=== PATIENT | female | born 1940 | race Caucasian/White ===

== ENCOUNTER → 2019-07-24 | Outpatient (CLI) | payer MEDICARE, SELFPAY | PROVIDERS: PCP Family Medicine; Visit Provider Family Medicine | DX: Z12.31 Encounter for screening mammogram for malignant neoplasm of breast (principal); N63.20 Unspecified lump in the left breast, unspecified quadrant; R92.8 Other abnormal and inconclusive findings on diagnostic imaging of breast | CPT/HCPCS: 76642; 77065; 77067; 77063 ==

== ENCOUNTER 2019-10-28 10:21 | Outpatient (CLI) | payer MEDICARE, SELFPAY ==
[2019-10-28 11:11] LABS: White Blood Count 6.9 K/mm3 (4.5-10.0)
[2019-10-28 11:18] LABS: Prothrombin Time 12.6 Seconds (11.1-14.7)
[2019-10-28 11:19] LABS: Partial Thromboplastin Time 28.7 SECONDS (22.3-36.8)
== END 2019-10-28 10:22 | disposition home or self-care (01) ==
LOC: ANHSURGERY 10:26
PROVIDERS: PCP Family Medicine; Visit Provider Surgery
DX: C50.919 Malignant neoplasm of unspecified site of unspecified female breast (principal)
CPT/HCPCS: 36415; 85048; 85610; 85730

== ENCOUNTER 2019-10-28 13:19 | Outpatient (CLI) | payer MEDICARE, SELFPAY ==
--- NOTE | 2019-10-28 | ECHO_ITS ---
Patient Info Name: Lori Velázquze Age: 79 years : 1940 Gender: Female Ht: 67 in Wt: 182 lbs BSA: 2.00 m2 HR: 80 bpm BP: 157 / 78 mmHg Heart Rhythm: Sinus Rhythm Technical Quality: Poor Exam Date: 10/28/2019 1:55 PM Exam Location: [facility] Pulmonary Patient Status: Outpatient Admit Date: 10/28/2019 Staff Ordering Physician: Lio Garcia MD Pastry Decorator: Kelvin Hernandez RDCS Attending Provider: Lio Garcia MD Referring Physician: Radha SALAZAR; Exam Type: CA echo doppler color flow Study Info Indications Z12.39 - Encounter for other screening for malignant neoplasm of breast Complete two-dimensional, color flow and Doppler transthoracic echocardiogram is performed. Reason for Poor Study: poor echocardiographic windows History/Risk Factors Breast cancer. Summary 1. Left ventricular chamber size and systolic function are normal with no regional wall motion abnormalities with an estimated ejection fraction of 60-65%. Measured ejection fraction is 61%. There is borderline concentric left ventricular hypertrophy. Grade 1 diastolic dysfunction is present. 2. No significant valve abnormality. 3. Normal sinus rhythm. 4. Somewhat technically difficult study. The patient had difficulty tolerating the pressure of the ultrasound probe and imaging was thus suboptimal. Left Ventricle Left ventricular chamber dimension is normal. Left ventricular systolic function is normal, estimated at 60-65%. There is mildly increased left ventricular wall thickness. Left ventricular septal wall motion is normal. The left ventricular diastolic function is grade I diastolic dysfunction. Left ventricular chamber size and systolic function are normal with no regional wall motion abnormalities with an estimated ejection fraction of 60-65%. Measured ejection fraction is 61%. There is borderline concentric left ventricular hypertrophy. Grade 1 diastolic dysfunction is present. Right Ventricle Right ventricular chamber dimension is normal. Right ventricular systolic function is normal. Left Atria Left atrial chamber dimension is normal. Right Atria Right atrial chamber dimension is normal. Aortic Valve The aortic valve is trileaflet. There is no aortic valve sclerosis. There is no aortic valve stenosis. There is no aortic valve regurgitation. Pulmonic Valve The pulmonic valve is normal. There is no pulmonic valve stenosis. There is no pulmonic regurgitation. Mitral Valve The mitral valve has normal leaflets. There is no mitral valve stenosis. There is no mitral valve regurgitation. Tricuspid Valve The tricuspid valve leaflets are normal. There is no significant tricuspid valve stenosis. There is trace tricuspid valve regurgitation. No pulmonary hypertension, estimated pulmonary arterial systolic pressure is Empty. Pericardium/Pleural The pericardium appears normal. There is no pericardial effusion. Inferior Vena Cava Normal inferior vena cava with >50% collapse upon inspiration consistent with Empty right atrial pressure, 5 mmHg. Aorta The aortic root size at the sinus of Valsalva is normal. The prox ascending aorta size is normal. Left Ventricular Outflow Tract Name Value Normal LVOT 2D
== END 2019-10-28 13:20 | disposition home or self-care (01) ==
LOC: ANHCARD 13:22
PROVIDERS: PCP Family Medicine; Visit Provider Internal Medicine Hematology & Oncology
DX: C50.912 Malignant neoplasm of unspecified site of left female breast (principal); Z51.11 Encounter for antineoplastic chemotherapy
CPT/HCPCS: 36415; 85048; 85610; 85730; 93306

== ENCOUNTER 2019-10-31 01:26 | Day surgery (SDC) | payer MEDICARE, SELFPAY ==
[2019-10-27 13:55] VITALS: BMI 29.4
[2019-10-31] VITALS (8 sets, daily range): BP systolic 125–155; BP diastolic 64–78; PULSE 74–83; RESP 13–20; TEMP 36.4–37.3; O2SAT 93–98
--- NOTE | ~2019-10-31 | XR_ITS ---
EXAMINATION: XR chest port-a-cath/central INDICATION: Port-A-Cath insertion TECHNIQUE: Portable AP chest at 1439 hours COMPARISON: None available FINDINGS: A left subclavian Port-A-Cath ends with its tip in the proximal right atrium. There is no p neumothorax. The lung volumes are low. The cardiomediastinal silhouette is normal. IMPRESSION: 1. Left subclavian Port-A-Cath insertion. No pneumothorax. Reviewed, dictated and finalized at location A. [facility]
--- NOTE | ~2019-10-31 | XR_ITS ---
EXAMINATION: XR fl guide central line place INDICATION: Port-A-Cath insertion TECHNIQUE: Two intraoperative fluoroscopic images are submitted for review Fluoroscopy exposure time was 77.4 seconds. The DAP for this procedure was 0.17180 mGycm2. COMPARISON: None available FINDINGS: A right clavian Port-A-Cath appears to end with its tip in the right atrium. An endotrachea l tube is noted. Please refer to procedure note for full details. IMPRESSION: Right subclavian Port-A-Cath insertion. Please refer to procedure note for full details. Reviewed, dictated and finalized at location A. HAULER OPERATOR IMPRESSION: Right subclavian Port-A-Cath insertion. Please refer to procedure n ote for full details.
--- NOTE | 2019-10-31 08:13 | PM.SD ---
Same Day Admit/Disch: HPI History of Present Illness Chief complaint: Left Breast Ca Narrative: oLri Velázquez is a 79 year old female Who was found to have left breast cancer. On 09/11/2019 she underwent left breast lumpectomy with left axillary sentinel node biopsy. 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 It had several ominous features including lymphovascular invasion, invasion of the dermis and satellite skin foci of invasive carcinoma. Her positive lymph node was a macro metastasis. Her medial margin was involved. The patient has seen Medical Oncology. She will be needing chemotherapy. She also needs re-excision of the medial margin. She is taken to surgery today for re-excision of the medial margin of the left breast. She is also going to have a Port-A-Cath placed under fluoroscopy. [facility] Past Medical History Medical History Anxiety H/O mammogram High cholesterol History of blood transfusion HTN (hypertension) Surgical History Surgical History H/O colonoscopy H/O total hysterectomy History of partial mastectomy of left breast left axillary sentinel lymph node biopsy. 09/11/19 History of tonsillectomy Family History Family History Father Hypertension Family history of cardiovascular disease Mother Hypertension Family history of cardiovascular disease Kidney failure Sibling Heart disease Arthritis Social History Social History Smoking packs per day: 0 Smoking cigarettes per day: 0.0 Years smoked: 0 Smoking pack-years: 0.00 Smoking status: Never smoker Second hand tobacco smoke exposure: No Alcohol intake: never Same Day Admit/Disch: Med Pre-admit Medications Home Medications Medication Instructions Recorded Confirmed Type blood sugar diagnostic #10 each 08/01/19 History insulin degludec 200 unit/mL (3 See Rx Instructions SUB-Q DAILY 08/20/19 10/31/19 Rx mL) subcutaneous pen #12 ml aspirin 325 mg PO DAILY 09/01/19 10/31/19 History ibuprofen 600 mg PO Q6H PRN #14 tablet 12/12/19 01/31/20 Rx lorazepam 1 mg tablet 1 mg PO BID PRN #60 tablet 09/22/19 10/31/19 Rx atorvastatin 20 mg tablet 20 mg PO DAILY #90 tablet 10/13/19 10/31/19 Rx metoprolol succinate 50 mg 50 mg PO BID #180 tablet 10/13/19 10/31/19 Rx tablet,extended release 24 hr insulin lispro 200 unit/mL (3 mL) 20 unit SUB-Q QACBREAK #9 ml 10/15/19 10/31/19 Rx subcutaneous pen telmisartan 80 0.5 tablet PO DAILY #45 tablet 10/22/19 10/27/19 Rx mg-hydrochlorothiazide 12.5 mg tablet glipizide 5 mg tablet 5 mg PO BID #180 tablet 10/29/19 10/31/19 Rx ibuprofen 600 mg PO Q6H PRN #14 tablet 10/31/19 Rx oxycodone-acetaminophen 0.5 - 1 tablet PO Q6H PRN #10 10/31/19 Rx tablet Exam Const: General: comfortable, no acute distress, alert and awake HENMT: Head: normocephalic and atraumatic Mouth: Yes Normal oral and palatal mucosa present Eyes: Conjunctivae: conjunctivae normal Pupils: Equal, round and reactive pupils present EOM: EOMs intact bilaterally Neck: Neck: normal visual inspection, no lymphadenopathy and nontender Chest: Chest palpation & inspection: normal inspection of the chest ( No skin rashes or abnormalities subclavian aspect anterior chest) Breast/axilla inspection: abnormal inspection of the axilla ( Left axillary incision healing well) and abnormal inspection of the breast ( left breast lumpectomy incision is healing well.) Resp: Effort & Inspection: normal respiratory effort Auscultation: clear to auscultation bilaterally Cardio: Rate: regular rate Rhythm: regular rhythm Heart sounds: no gallops, no murmurs and no rubs GI: Inspection: non-distended GI Palp: Yes Soft to palpation, No Tenderness to palp
[2019-10-31 11:23] LABS: Glucose Point of Care 106 (65-105)
[2019-10-31] MEDS: LACTATED RINGERS 1,000 ML 30 ML IV CONT ×2 (11:30→14:30)
--- NOTE | 2019-10-31 12:15 | WPDANESEPPF ---
Anes - Initial Pre Proc Eval Procedure: Operation Date: 10/31/19 12:45 Proposed Procedures p Re-excision Lumpectomy Left Breast - Brijesh Russell MD s Insertion Samantha Cath Under Fluoroscopy - Brijesh Russell MD Date/Time: 10/31/19 12:15 Surgeon: Brijesh Russell MD Pre Op Diagnosis: Left Breast Ca Patient Data Age: 79 Gender: F Height: 5 ft 6 in Weight: 82.6 kg Last Vital Signs Temp 37.3 C 10/31/19 11:54 Pulse 83 10/31/19 11:54 Resp 20 10/31/19 11:54 BP 144/65 H 10/31/19 11:54 Pulse Ox 94 10/31/19 11:54 Allergies Allergy/AdvReac Type Severity Reaction Status Date / Time ciprofloxacin Allergy Unknown rapid Verified 10/31/19 11:59 heart rate codeine Allergy Unknown Nausea Verified 10/31/19 11:59 Home Medications Medication Instructions Recorded Confirmed Type blood sugar diagnostic #10 each 08/01/19 History insulin degludec 200 unit/mL (3 See Rx Instructions SUB-Q DAILY 08/20/19 10/31/19 Rx mL) subcutaneous pen #12 ml aspirin 325 mg PO DAILY 09/01/19 10/31/19 History ibuprofen 600 mg PO Q6H PRN #14 tablet 09/11/19 10/31/19 Rx lorazepam 1 mg tablet 1 mg PO BID PRN #60 tablet 09/22/19 10/31/19 Rx atorvastatin 20 mg tablet 20 mg PO DAILY #90 tablet 10/13/19 10/31/19 Rx metoprolol succinate 50 mg 50 mg PO BID #180 tablet 10/13/19 10/31/19 Rx tablet,extended release 24 hr insulin lispro 200 unit/mL (3 mL) 20 unit SUB-Q QACBREAK #9 ml 10/15/19 10/31/19 Rx subcutaneous pen telmisartan 80 0.5 tablet PO DAILY #45 tablet 10/22/19 10/27/19 Rx mg-hydrochlorothiazide 12.5 mg tablet glipizide 5 mg tablet 5 mg PO BID #180 tablet 10/29/19 10/31/19 Rx Laboratory Tests 10/31/19 11:21 POC Capillary Glucose 106 mg/dl mg/dl (65-105) Patient hx anesthesia problems: none Family hx anesthesia problems: none PMFSH Past Medical History Medical History Anxiety H/O mammogram High cholesterol History of blood transfusion HTN (hypertension) Surgical History Surgical History H/O colonoscopy H/O total hysterectomy History of partial mastectomy of left breast left axillary sentinel lymph node biopsy. 09/11/19 History of tonsillectomy Family History Family History Father Hypertension Family history of cardiovascular disease Mother Hypertension Family history of cardiovascular disease Kidney failure Sibling Heart disease Arthritis Social History Social History Smoking packs per day: 0 Smoking cigarettes per day: 0.0 Years smoked: 0 Smoking pack-years: 0.00 Smoking status: Never smoker Second hand tobacco smoke exposure: No Alcohol intake: never Anes - Eval Final PreProcedure Day of Procedure 10/31/19 12:15 Patient weight: overweight Heart: regular rate and rhythm Lungs: clear to auscultation Airway: Mallampati scale class II Neurological: alert and oriented Last oral intake: >/= 8 hours ASA classification: III Emergent: no Anesthetic plan: proceed Anesthesia type and monitoring: general LMA and standard monitoring Informed Consent: The patient's anesthetic plan and its attendant risks and benefits were discussed with the patient/family/POA. Questions were solicited and answers provided to the satisfaction of the patient/family/POA.
[2019-10-31] MEDS: ceFAZolin 2 GM/D5W 50 ML 2 GM/50 ML BAG IVPB (12:50)
[2019-10-31] MEDS: HEPARIN SODIUM 1,000 UNITS/ML VIAL 1000 UNITS XX (13:21)
--- NOTE | 2019-10-31 14:27 | PM.PROC ---
Procedure Note - Detailed Date of procedure: 10/31/19 Pre-op diagnosis: Left Breast Ca; inadequate venous access for chemo Left breast cancer with positive medial margin, inadequate venous access for chemotherapy Post-op diagnosis: same Procedure performed: Placement right subclavian vortex Port-A-Cath under fluoroscopy; re-excision lumpectomy left breast medial margin Description of procedure: The patient was taken to surgery and induced into general anesthesia. The right subclavian, right neck, and left breast were all prepped into the field. Sterile draping occurred as well. We started on the right side with the Port-A-Cath placement. The proposed incision was marked on the skin just under the right clavicle. Local anesthesia was infiltrated into the anticipated incision and into the subcutaneous tissues. Incision was made and dissection was carried down through the subcutaneous to the pectoralis major fascia. Additional local was infiltrated into the area of the pectoralis major muscle and fascia. A subfascial pocket was then created. Cautery was used for hemostasis. The right subclavian vein was then cannulated and a guidewire was able to be passed into the superior vena cava. This position was confirmed with C-arm fluoroscopy. We then used C-arm fluoroscopy to measure the length of Port-A-Cath that would be needed. The Port-A-Cath was cut to the appropriate length. Introducer and sheath were then passed over the guidewire into the superior vena cava. The guidewire and introducer were removed. The Port-A-Cath was passed through the sheath and into the superior vena cava. We checked the position with C-arm fluoroscopy. It looked good. The Port-A-Cath aspirated blood and flushed easily with heparin. Port-A-Cath was sutured to the pectoralis major muscle with 2 0 silk. I recheck the Port-A-Cath again. It aspirated blood and flushed easily with heparin. The wound was closed with running layered closure of 2 0 Vicryl. A subcuticular 4 O Monocryl running skin suture was placed. The wound was dressed with Exofin surgical adhesive. We then turned our attention to the left breast. Local was infiltrated into the previous left breast lumpectomy incision. Incision was made and dissection through the subcutaneous was carried out. The entire incision was reopened. The biopsy cavity had shrunken but was able to be found and opened. I then excised the medial wall of the biopsy cavity with a 5-10 mm thickness of surrounding breast tissue. I included some of the anterior and posterior margins med as well. Once the specimen was removed, a silk suture was placed on the inner aspect to label it for the pathologist. The wound was then made meticulously hemostatic with the cautery. Additional local was infiltrated into the base of the wound and the wound edges. The wound was then closed in layers with interrupted 3 0 Vicryl suture. Four 0 Vicryl subcutaneous suture were also placed. An interrupted subcuticular 4 O Vicryl skin closure was placed. The skin was closed finally with a running 4 0 Monocryl skin suture. This wound was also dressed with Exofin surgical adhesive. The patient was awakened and taken to recovery in good condition. Sponge and needle counts were correct x2. No complications were noted. Implants: Vortex Port-A-Cath Anesthesia: GETA and local (0.5% Marcaine mixed with Exparel) Surgeon: Brijesh Russell MD Marine Specialist: Abiola GIL Estimated blood loss (mL): 30 Drains: No Packing: No Pathology: yes (Left breast medial margin re-excision lumpectomy) Complications: None Condition: stable Disposition: PACU Findings: Right subclavian Port-A-Cath in the distal SVC right atrial junction, no evidence of persistent cancer on gross inspection of the medial margin left breast tissue.
[2019-10-31 15:11] LABS: Glucose Point of Care 118 (65-105)
== END 2019-10-31 16:35 | disposition home or self-care (01) ==
PROVIDERS: PCP Family Medicine; Visit Provider Surgery
PROC: (CPT 19303; principal; 2019-10-31 12:45)
PROC: (CPT 36561; 2019-10-31 12:45)
DX: C50.912 Malignant neoplasm of unspecified site of left female breast (principal); C77.3 Secondary and unspecified malignant neoplasm of axilla and upper limb lymph nodes; I87.2 Venous insufficiency (chronic) (peripheral); I10 Essential (primary) hypertension; E78.00 Pure hypercholesterolemia, unspecified; E11.9 Type 2 diabetes mellitus without complications; Z79.4 Long term (current) use of insulin; F41.9 Anxiety disorder, unspecified
CPT/HCPCS: 36561; 19301; 77001; 88307; A9270; C1788; C9290; J0690; J1100; J1644; J2370; J2405; J2704; J3010; J7120

== ENCOUNTER 2019-11-24 08:36 | Outpatient (CLI) | payer MEDICARE, SELFPAY ==
--- NOTE | ~2019-11-24 | CT_ITS ---
EXAMINATION: CT chest abdomen pelvis w con DATE: 11/24/2019 09:23 INDICATION: Invasive ductal carcinoma of the breast TECHNIQUE: Transaxial computed tomographic images of the chest, abdomen, and pelvis were obtained aft er the administration of 100 cc of Omnipaque 350 intravenous contrast. The dose-length product (DLP) was 1241.08 mGy-cm. Automated exposure control and iterative reconstruction technique were employed. COMPARISON: 01/15/2007 FINDINGS: CHEST CT: A calcified nodule of the left upper lobe is consistent with old granulomatous disease. Dependent air space opacities of the lungs have the appearance of atelectasis. There is no pleural effusion or pneu mothorax. A right internal jugular Port-A-Cath ends with its tip in the distal superior vena cava. Th ere are changes of lumpectomy in the left breast as well as left axillary lymph node dissection. No p athologically enlarged thoracic lymph nodes are identified. The heart size is normal. There is a part ially imaged enhancing soft tissue density in the submandibular location on the right, likely submand ibular gland. ABDOMEN/PELVIS CT: There is atrophy of the pancreas. There are multiple cystic lesions of the pancreas, largest of which measures 13 mm in the body of the pancreas. The liver is diffusely low in attenuation when compared with the spleen, consistent with hepatic steatosis. The spleen, gallbladder, and adrenal glands are n ormal. The right kidney is unremarkable. There is an 8 mm cyst of the left kidney. No pathologically enlarged abdominal or pelvic lymph nodes are identified. There is no free intraperitoneal gas or evid ence of bowel obstruction. Colonic diverticulosis is present without evidence of diverticulitis. Ther e is a short segment of circumferential wall thickening in the proximal transverse colon best appreci ated on coronal reconstructed image 34. There is a small fat-containing umbilical hernia. There is mi ld lumbar spondylosis. IMPRESSION: 1. Changes of lumpectomy in the left breast with axillary lymph node dissection with no evidence of m etastatic disease. 2. Multiple cystic lesions of the atrophic pancreas measuring up to 1.3 cm. The differential diagnosi s includes pseudocyst, intraductal papillary mucinous neoplasm (IPMN), mucinous cystic neoplasm (MCN) , and the less common serous cystadenoma and neuroendocrine tumor. Follow-up CT or MRI without and wi th contrast in two years is recommended. 3. Possible circumferential wall thickening of the proximal transverse colon. Recommend correlation w ith colonoscopy history as malignancy can have this appearance. Reviewed, dictated and finalized at location A. ING WORKER IMPRESSION: 1. Changes of lumpectomy in the left breast with axillary lymph node dissection with no evidence of metastatic disease. 2. Multiple cystic lesions of the atrophic pancreas measuring up to 1.3 cm. The differential diagnosis includes pseudocyst, intraductal papillary mucinous claudia plasm (IPMN), mucinous cystic neoplasm (MCN), and the less common serous cystad enoma and neuroendocrine tumor. Follow-up CT or MRI without and with contrast i n two years is recommended. 3. Possible circumferential wall thickening of the proximal transverse colon. R ecommend correlation with colonoscopy history as malignancy can have this appea joesph.
== END 2019-11-24 08:37 | disposition home or self-care (01) ==
PROVIDERS: PCP Family Medicine; Visit Provider Internal Medicine Hematology & Oncology
DX: C50.912 Malignant neoplasm of unspecified site of left female breast (principal)
CPT/HCPCS: 71260; 74177; Q9967

== ENCOUNTER 2019-12-02 08:17 | Outpatient (CLI) | payer MEDICARE, SELFPAY ==
[2019-12-02 09:09] LABS: Alanine Aminotransferase 28 U/L (4-35); Albumin Level 3.8 g/dL (3.5-5.1); Alkaline Phosphatase 89 U/L (38-126); Aspartate Amino Transferase 23 U/L (14-36); Bilirubin,Total 0.9 mg/dL (0.2-1.3); Blood Urea Nitrogen 15 mg/dL (7-17); Calcium 9.1 mg/dL (8.4-10.2); Carbon Dioxide 27 mmol/L (22-30); Chloride 107 mmol/L (98-107); Estimated Glomerular Filt Rate > 60; Glucose 163 mg/dL (65-105); Potassium 4.1 mmol/L (3.4-5.0); Sodium 139 mmol/L (137-145)
[2019-12-02 09:16] LABS: Hemoglobin A1C 8.2 % (<5.7)
== END 2019-12-02 08:18 | disposition home or self-care (01) ==
PROVIDERS: PCP Family Medicine; Visit Provider Family Medicine
DX: E11.9 Type 2 diabetes mellitus without complications (principal)
CPT/HCPCS: 36415; 80053; 83036

== ENCOUNTER 2020-04-12 10:03 | Outpatient (CLI) | payer MEDICARE, SELFPAY ==
[2020-04-12 10:38] LABS: Alanine Aminotransferase 34 U/L (4-35); Albumin Level 3.9 g/dL (3.5-5.1); Alkaline Phosphatase 130 U/L (38-126); Aspartate Amino Transferase 41 U/L (14-36); Bilirubin,Total 0.9 mg/dL (0.2-1.3); Blood Urea Nitrogen 12 mg/dL (7-17); Calcium 9.5 mg/dL (8.4-10.2); Carbon Dioxide 22 mmol/L (22-30); Chloride 109 mmol/L (98-107); Estimated Glomerular Filt Rate > 60; Glucose 151 mg/dL (65-105); Potassium 4.2 mmol/L (3.4-5.0); Sodium 138 mmol/L (137-145)
[2020-04-12 11:15] LABS: Hemoglobin A1C 6.7 % (<5.7)
== END 2020-04-12 10:04 | disposition home or self-care (01) ==
LOC: ANHLAB 10:06
PROVIDERS: PCP Family Medicine; Visit Provider Family Medicine
DX: E11.9 Type 2 diabetes mellitus without complications (principal)
CPT/HCPCS: 36415; 80053; 83036

== ENCOUNTER → 2020-04-15 09:05 | Outpatient (CLI) | payer MEDICARE, SELFPAY ==
--- NOTE | ~2020-04-15 | MM_ITS ---
EXAMINATION: MM diagnostic dorys LT w lexy HISTORY: Patient with history of left breast cancer status post lumpectomy and chemotherapy TECHNIQUE: Craniocaudal, mediolateral, and mediolateral oblique 3-D tomosynthesis images of the left breast were performed and synthetic 2-D images were generated. CAD analysis was submitted and interpr eted. COMPARISON: 07/24/2019, 01/19/2016 BREAST PARENCHYMAL COMPOSITION: There are scattered areas of fibroglandular density. FINDINGS: There are changes of interval lumpectomy and axillary lymph node dissection. No suspicious mass, calcification, or architectural distortion are identified. IMPRESSION: 1. No mammographic evidence of malignancy. 2. Routine follow-up and screening are recommended. BI-RADS Category 2: Benign finding(s). Reviewed, dictated and finalized at location A.
== END ==
PROVIDERS: PCP Family Medicine; Visit Provider Radiology Radiation Oncology
DX: C50.112 Malignant neoplasm of central portion of left female breast (principal)
CPT/HCPCS: 77061; 77065; G0279

== ENCOUNTER 2020-08-25 10:21 | Outpatient (CLI) | payer MEDICARE, SELFPAY ==
[2020-08-25 11:04] LABS: Hematocrit 42.7 % (37.0-47.0); Hemoglobin 14.5 g/dL (12.0-15.0); Mean Corpuscular Hemoglobin 30.5 pg (26-34); Mean Corpuscular Volume 89.9 fl (80-100); Mean Platelet Volume 9.9 fl (7.4-10.4); Platelet Count Result 215 k/mm3 (150-375); Red Blood Count 4.75 M/mm3 (4.2-5.4); Red Cell Distribution Width 13.5 % (11.5-14.5); White Blood Count 5.6 K/mm3 (4.5-10.0)
[2020-08-25 11:06] LABS: Add Urine Microscopic? YES; Appearance Urine Clear (Clear); Bilirubin Urine Negative (Negative); Blood Urine 1+ (Negative); Color Urine Yellow (Yellow); Glucose Urine UA Negative (Negative); Ketones Urine Negative (Negative); Leukocyte Esterase Ur 3+ LEU/UL (NEGATIVE); Nitrate Urine Negative (Negative); Protein Urine 1+ mg/dL (Negative); Specific Grav Ur 1.025 (1.001-1.035); Urobilinogen Urine 0.2 mg/dL (<2.0)
[2020-08-25 11:17] LABS: Alanine Aminotransferase 24 U/L (4-35); Alkaline Phosphatase 81 U/L (38-126); Anion Gap 9 mmol/L (8-16); Aspartate Amino Transferase 27 U/L (14-36); Bilirubin,Total 1.1 mg/dL (0.2-1.3); Blood Urea Nitrogen 23 mg/dL (7-17); Calcium 9.4 mg/dL (8.4-10.2); Carbon Dioxide 28 mmol/L (22-30); Chloride 103 mmol/L (98-107); Cholesterol 181 mg/dL (0-200); Estimated Glomerular Filt Rate > 60; Glucose 196 mg/dL (65-105); HDL Direct 39 mg/dL; Potassium 4.1 mmol/L (3.4-5.0); Sodium 140 mmol/L (137-145); Triglycerides 150 mg/dL (<150)
[2020-08-25 11:20] LABS: WBC Urine 51-75 /hpf (0-3)
[2020-08-25 11:20] LABS: Hemoglobin A1C 6.1 % (<5.7)
[2020-08-25 11:21] LABS: Bacteria Urine 1+ /hpf
[2020-08-25 11:29] LABS: LDL Cholesterol Direct 117 mg/dL
[2020-08-25 11:37] LABS: Creatinine Urine 124.2 mg/dL
[2020-08-25 11:41] LABS: MALB Creatinine Ratio 28.9 mg/g (0-30); Microalbumin Urine Random 35.9 mg/L (0-16.7)
== END 2020-08-25 10:22 | disposition home or self-care (01) ==
PROVIDERS: PCP Family Medicine; Visit Provider Family Medicine
DX: E11.9 Type 2 diabetes mellitus without complications (principal); E78.2 Mixed hyperlipidemia; I10 Essential (primary) hypertension
CPT/HCPCS: 36415; 80053; 80061; 81001; 82043; 83036; 84443; 85027

== ENCOUNTER 2020-11-30 10:59 | Outpatient (CLI) | payer MEDICARE, SELFPAY ==
--- NOTE | ~2020-11-30 | MMUS_ITS ---
EXAMINATION: MM diagnostic dorys BI w lexy, US breast RT complete HISTORY: Left breast cancer following chemotherapy and radiation therapy. TECHNIQUE: Additional 3-D tomosynthesis images of the breasts were performed and synthetic 2-D images were generated. CAD analysis was submitted and interpreted. High resolution right complete breast ul trasound was performed. COMPARISON: 11/30/2020 BREAST PARENCHYMAL COMPOSITION: Breast composed of scattered areas of fibroglandular density. FINDINGS: MAMMOGRAPHIC FINDINGS: There is increased breast density and reticulation in the left breast compared with prior study, cons istent with sequela of interval radiation therapy. No discrete mass or architectural distortion in th e left breast. There is an enlarging mass in the lower central aspect of the right breast, middle thi rd, measuring approximately 10 mm by mammogram. Right complete breast ultrasound: At 4:00, 2 cm from the nipple, there is an oval circumscribed hypoechoic mass measuring 5 mm maximum dimension, likely a complicated cyst. At 6:00, 2 cm from the nipple, there is a solid-appearing hypoe choic mass with slightly irregular margins measuring up to 8 mm. No significant posterior features or internal vascularity. At 9:00 near the nipple is a shadowing focus, likely corresponding to a coarse calcification noted on mammography. At 8:00, 5 cm from the nipple, there is hypoechoic soft tissue, likely dense fibroglandular tissue. No discrete mass identified. IMPRESSION: 1. Solid-appearing hypoechoic mass of the right breast at 6:00, 2 cm from the nipple. This likely cor responds to the enlarging mass seen on mammography. 2. Ultrasound-guided right breast biopsy recommended. BI-RADS category 4, suspicious findings. Reviewed, dictated and finalized at location A. ILE PROCESS TECH IMPRESSION: 1. Solid-appearing hypoechoic mass of the right breast at 6:00, 2 cm from the n ipple. This likely corresponds to the enlarging mass seen on mammography. 2. Ultrasound-guided right breast biopsy recommended. BI-RADS category 4, suspicious findings.
== END 2020-11-30 11:00 | disposition home or self-care (01) ==
PROVIDERS: PCP Family Medicine; Visit Provider Internal Medicine Hematology & Oncology
DX: C50.012 Malignant neoplasm of nipple and areola, left female breast (principal); Z17.0 Estrogen receptor positive status [ER+]; R92.8 Other abnormal and inconclusive findings on diagnostic imaging of breast
CPT/HCPCS: 76641; 77062; 77066; G0279

== ENCOUNTER 2020-12-09 13:06 | Outpatient (CLI) | payer MEDICARE, SELFPAY ==
--- NOTE | ~2020-12-09 | US_ITS ---
EXAMINATION: US GUIDED NEEDLE BIOPSY DATE: 12/09/2020 14:57 STOPPER MAKER INDICATION: Solid appearing hypoechoic mass of right breast at 6:00 2 cm from nipple TECHNIQUE AND FINDINGS: The risks and potential benefits of the procedure were discussed with the patient, and written inform ed consent was obtained. Timeout procedure was performed. After sterile preparation of the right [address] st, 1% lidocaine was utilized for local anesthesia. A complex mixed cystic and solid lesion was confirmed at 6:00 2 cm from the nipple. A 14G spring-loaded biopsy gun needle was advanced to the edge of the region of interest from a media l approach utilizing sonographic guidance. A total of 2 tissue core samples were obtained through th e lesion. An Inrad tissue marker clip was not placed at the biopsy site, as the lesion was no longer sonographically detectable after the initial 2 biopsy passes. Hemostasis was achieved. A sterile ban dage was applied. The patient tolerated the procedure well and there was no evidence of immediate complication. The pa tient was given verbal instructions prior to departing from the department. No post-procedure mammogr am was performed. The tissue samples were submitted to surgical pathology for histologic analysis. IMPRESSION: 1. Ultrasound guided biopsy of 6:00 right breast mass; lesion resolved and was no longer sonographica lly detectable after 2 biopsy passes. Please refer to pathology report for histologic analysis. Reviewed, dictated and finalized at Location A. Reviewed, dictated and finalized at location A. PER MAKER IMPRESSION: 1. Ultrasound guided biopsy of 6:00 right breast mass; lesion resolved and was no longer sonographically detectable after 2 biopsy passes. Please refer to pat hology report for histologic analysis.
== END 2020-12-09 13:07 | disposition home or self-care (01) ==
PROVIDERS: PCP Family Medicine; Visit Provider Internal Medicine Hematology & Oncology
DX: N63.15 Unspecified lump in the right breast, overlapping quadrants (principal)
CPT/HCPCS: 19083; 88305

== ENCOUNTER → 2020-12-25 02:07 | Outpatient (CLI) | payer MEDICARE, SELFPAY ==
[2020-12-25 20:23] LABS: SARS-CoV-2 RNA PCR Negative
== END ==
PROVIDERS: PCP Family Medicine; Visit Provider Surgery
DX: Z01.812 Encounter for preprocedural laboratory examination (principal); Z20.822 Contact with and (suspected) exposure to COVID-19
CPT/HCPCS: C9803; U0003; U0005

== ENCOUNTER 2020-12-29 01:37 | Day surgery (SDC) | payer MEDICARE, SELFPAY ==
[2020-12-22 13:11] VITALS: BMI 25.8
--- NOTE | 2020-12-29 10:55 | PM.HPGS ---
History of Present Illness History of Present Illness Consent: Risks, benefits, and alternatives Of removal of a Port-A-Cath have been discussed and questions answered. Patient agrees to proceed with procedure. 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 This was discovered in late 2018 and she underwent a lumpectomy and sentinel lymph node biopsy. Because of positive margins the patient went back for re-excision on the breast left side October 31, 2019 and margins came back negative. There was no residual neoplasm. Patient then had adjuvant chemotherapy with Adriamycin and Cytoxan starting December 05, 2019 and finishing therapy which included Taxol on March 26, 2020. Subsequent radiation therapy to the left breast was completed on June 11, 2020. Patient has been approved for removal of her Port-A-Cath. Patient recently had a bilateral diagnostic mammogram showing a nodule in the right which was biopsied and showed only fibrocystic change in fibrosis. Therefore, now Dr. Garcia's recommended that she could have her port out. She presents this time for removal of the port. Review of Systems Constitutional: Constitutional: Reports no additional constitutional complaints, Reports fatigue and Denies malaise Eyes: Eyes: Denies change in vision and Denies loss of vision ENT: Reports Normal hearing present, Denies change in voice, Denies dizziness, Denies hoarseness and Denies sore throat Cardiovascular: Cardiovascular: Denies chest pain, Denies leg edema and Denies dyspnea Comments: Has elevated cholesterol on treatment Also on metoprolol for blood pressure or heart arrhythmia. Respiratory: Respiratory: Denies cough, Denies dyspnea and Denies wheezing Gastrointestinal: Gastrointestinal: Denies hematochezia, Denies change in bowel habits and Denies heartburn Genitourinary: Genitourinary: Denies urinary frequency and Denies urinary incontinence Neurologic: Reports Normal hearing present, Denies confusion, Denies dizziness, Denies loss of vision, Denies memory loss and Denies seizure-like activity Psychiatric: Psychiatric: Denies confusion, Denies depression and Denies memory loss Endocrine: Endocrine: Denies cold intolerance and Reports fatigue Comments: Has type 2 diabetes mellitus and is on treatment. Hematologic/Lymphatic: Hematologic/Lymphatic: Denies easy bleeding and Denies easy bruising Allergic/Immunologic: Allergic/Immunologic: Denies wheezing PMFSH Past Medical History Medical History (Updated 12/29/20 @ 11:04 by Bautista Posey MD) Anxiety H/O mammogram High cholesterol History of blood transfusion HTN (hypertension) (Unknown) Port-A-Cath in place (~2019) Surgical History Surgical History (Updated 12/29/20 @ 11:04 by Bautista Posey MD) H/O colonoscopy H/O total hysterectomy History of partial mastectomy of left breast left axillary sentinel lymph node biopsy. 09/11/19 History of tonsillectomy Family History Family History Father Hypertension Family history of cardiovascular disease Mother Hypertension Family history of cardiovascular disease Kidney failure Sibling Heart disease Arthritis Social History Social History Smoking packs per day: 0 Smoking cigarettes per day: 0.0 Years smoked: 0 Smoking pack-years: 0.00 Smoking status: Never smoker Second hand tobacco smoke exposure: No Alcohol intake: never Substance use: never Substance use type: does not use Living arrangements: with family Gender identity (if verbalized by the patient): Female Spiritual care concerns: No Meds Home Medications and Allergies Home Medications Medication Instructions Recorded Confirmed Type aspirin 325 mg PO DAILY 09/01/19 0
[2020-12-29 13:12] VITALS: BP 138/80; PULSE 89; RESP 16; TEMP 36.6; O2SAT 99
--- NOTE | 2020-12-29 13:21 | WPDHPUPDATE1 ---
History and Physical Update Update Date/Time: 12/29/20 13:21 History and Physical has been reviewed, including an updated exam of the patient. There are NO changes in the patient's condition. Risks, benefits, and alternatives of removal of Port-A-Cath under local anesthetic have been discussed and questions answered. Patient agrees to proceed with procedure.
[2020-12-29 13:53] VITALS: BP 148/71; PULSE 94; RESP 16; O2SAT 97
[2020-12-29] MEDS: LIDO 2%/EPINEPHRINE 1:100,000 20 ML VIAL 5 ML INFILTRATE (14:02)
[2020-12-29 14:03] VITALS: BP 139/69; RESP 16; O2SAT 97
[2020-12-29 14:13] VITALS: BP 134/70; RESP 16; O2SAT 96
[2020-12-29 14:22] VITALS: BP 165/77; RESP 16; O2SAT 94
[2020-12-29 14:30] VITALS: BP 138/88; PULSE 95; RESP 16; O2SAT 100
--- NOTE | 2020-12-29 15:08 | PM.PROC ---
Procedure Note - Detailed Date of procedure: 12/29/20 Pre-op diagnosis: hx breast CA Indwelling Port-A-Cath Post-op diagnosis: same Procedure performed: Removal of Port-A-Cath Description of procedure: Prior to the procedure the patient was seen in the holding area and the area of proposed surgery was marked. All questions were answered and the patient wished to proceed with removal of the Port-A-Cath. The patient was brought to the operating room and placed supine. The entire right neck, chest, and shoulder were prepped with chlorhexidine. The area was draped off. Time-out was performed confirming patient and site of surgery. Following this a 15 blade knife was used to make incision directly on the scar from the previous port placement. This was done after infiltrating local anesthetic into the area of and inferior to the scar and into the area of the pocket containing the port to some degree using 1% xylocaine with epinephrine. Following this we carefully dissected down to the junction of the port and catheter. Bovie cautery with needle-tip was used to carefully incise the capsule around the port and free up the scar tissue around the junction of the port and catheter. Two Prolene sutures that were holding the port to the underlying fascia were carefully excised with a 15 blade knife and mosquito hemostats. Following this the port was brought up and out of the pocket. Then watching the patient's respirations I carefully removed the catheter in one smooth pull while applying pressure in the lower right neck area at the catheter exit site as the patient was breathing out. Pressure was held for 1 minute. I used Bovie cautery on some the subcutaneous tissues as we waited for good clotting. Again hemostasis was checked in the wound using Bovie cautery for superficial hemostasis in the subcutaneous tissues. Following this closure was obtained with 2 layers. I used buried subcutaneous sutures of 3-0 Vicryl in the subcutaneous layer followed by a running subcuticular closure of 4-0 Monocryl on the skin. Patient tolerated the procedure well. Estimated blood loss was 3 cc Sponge, needle, and instrument counts were correct at the end the procedure and patient was taken to the outpatient recovery area in good condition. Anesthesia: local ( 2% xylocaine with epinephrine) Surgeon: Bautista Posey MD Assembler Product: none Drains: No Packing: No Pathology: none sent Complications: No immediate complications Condition: stable Disposition: other ( outpatient recovery area) Findings: unremarkable port and catheter that were intact.
== END 2020-12-29 14:52 | disposition home or self-care (01) ==
PROVIDERS: PCP Family Medicine; Visit Provider Surgery
PROC: (CPT 36589; principal; 2020-12-29 14:00)
DX: Z45.2 Encounter for adjustment and management of vascular access device (principal); Z85.3 Personal history of malignant neoplasm of breast; Z92.21 Personal history of antineoplastic chemotherapy; Z92.3 Personal history of irradiation; I10 Essential (primary) hypertension; E11.9 Type 2 diabetes mellitus without complications; E78.00 Pure hypercholesterolemia, unspecified; F41.9 Anxiety disorder, unspecified; Z79.82 Long term (current) use of aspirin; Z79.84 Long term (current) use of oral hypoglycemic drugs; Z79.4 Long term (current) use of insulin; Z79.811 Long term (current) use of aromatase inhibitors
CPT/HCPCS: 36590

== ENCOUNTER 2021-01-03 10:30 | Outpatient (CLI) | payer MEDICARE, SELFPAY ==
[2021-01-03 11:09] LABS: Hemoglobin A1C 6.6 % (<5.7)
[2021-01-03 11:13] LABS: Alanine Aminotransferase 20 U/L (4-35); Albumin Level 3.9 g/dL (3.5-5.1); Alkaline Phosphatase 70 U/L (38-126); Anion Gap 7 mmol/L (8-16); Aspartate Amino Transferase 23 U/L (14-36); Bilirubin,Total 1.1 mg/dL (0.2-1.3); Blood Urea Nitrogen 25 mg/dL (7-17); Calcium 9.1 mg/dL (8.4-10.2); Carbon Dioxide 28 mmol/L (22-30); Chloride 104 mmol/L (98-107); Estimated Glomerular Filt Rate > 60; Glucose 183 mg/dL (65-105); Potassium 4.3 mmol/L (3.4-5.0); Sodium 139 mmol/L (137-145)
== END 2021-01-03 10:31 | disposition home or self-care (01) ==
PROVIDERS: PCP Family Medicine; Visit Provider Family Medicine
DX: E11.9 Type 2 diabetes mellitus without complications (principal)
CPT/HCPCS: 36415; 80053; 83036

== ENCOUNTER 2021-05-18 10:01 | Outpatient (CLI) | payer MEDICARE, SELFPAY ==
[2021-05-18 11:29] LABS: Hemoglobin A1C 8.2 % (<5.7)
== END 2021-05-18 10:02 | disposition home or self-care (01) ==
PROVIDERS: PCP Family Medicine; Visit Provider Physician Assistant
DX: E11.9 Type 2 diabetes mellitus without complications (principal); R79.89 Other specified abnormal findings of blood chemistry
CPT/HCPCS: 36415; 83036; 84443

== ENCOUNTER 2021-06-03 10:58 | Outpatient (CLI) | payer MEDICARE, SELFPAY ==
--- NOTE | ~2021-06-03 | MMUS_ITS ---
EXAMINATION: MM diagnostic dorys BI w lexy, US breast RT complete HISTORY: History of left breast cancer status post lumpectomy. TECHNIQUE: Additional 3-D tomosynthesis images of the breasts were performed and synthetic 2-D images were generated. CAD analysis was submitted and interpreted. High resolution complete right breast ul trasound was performed. COMPARISON: Comparison to multiple prior studies sequentially, with oldest reviewed study dated 07/01. BREAST PARENCHYMAL COMPOSITION: Breast composed of scattered areas of fibroglandular density. FINDINGS: MAMMOGRAPHIC FINDINGS: There are no suspicious masses, calcifications or architectural distortion in either breast to sugges t malignancy. ULTRASOUND: Complete right breast ultrasound: At 4:00, 2 cm from the nipple, there is a 3 mm cyst. No suspicious masses are identified in the right breast to suggest malignancy. IMPRESSION: 1. No evidence for malignancy in either breast. 2. Routine yearly screening mammogram and regular clinical breast examination are recommended. BI-RADS Category 2: Benign finding(s). Reviewed, dictated and finalized at location A. IMPRESSION: 1. No evidence for malignancy in either breast. 2. Routine yearly screening mammogram and regular clinical breast examination a re recommended. BI-RADS Category 2: Benign finding(s).
== END 2021-06-03 10:59 | disposition home or self-care (01) ==
PROVIDERS: PCP Family Medicine; Visit Provider Internal Medicine Hematology & Oncology
DX: C50.012 Malignant neoplasm of nipple and areola, left female breast (principal); C50.112 Malignant neoplasm of central portion of left female breast; C50.212 Malignant neoplasm of upper-inner quadrant of left female breast; Z17.0 Estrogen receptor positive status [ER+]; N60.02 Solitary cyst of left breast
CPT/HCPCS: 76641; 77062; 77066; G0279

== ENCOUNTER 2021-09-30 10:34 | Outpatient (CLI) | payer MEDICARE, SELFPAY ==
[2021-09-30 11:24] LABS: Hematocrit 43.7 % (37.0-47.0); Hemoglobin 14.7 g/dL (12.0-15.0); Mean Corpuscular HGB Conc 33.6 g/dl (32-36); Mean Corpuscular Hemoglobin 31.7 pg (26-34); Mean Corpuscular Volume 94.2 fl (80-100); Mean Platelet Volume 9.8 fl (7.4-10.4); Platelet Count Result 182 k/mm3 (150-375); Red Blood Count 4.64 M/mm3 (4.2-5.4)
[2021-09-30 11:25] LABS: Alanine Aminotransferase 23 U/L (4-35); Alkaline Phosphatase 79 U/L (38-126); Anion Gap 9 mmol/L (8-16); Aspartate Amino Transferase 24 U/L (14-36); Blood Urea Nitrogen 23 mg/dL (7-17); Calcium 9.3 mg/dL (8.4-10.2); Carbon Dioxide 26 mmol/L (22-30); Chloride 104 mmol/L (98-107); Cholesterol 177 mg/dL (0-200); Estimated Glomerular Filt Rate 60; Glucose 230 mg/dL (65-110); HDL Direct 39 mg/dL; Sodium 139 mmol/L (137-145); Triglycerides 254 mg/dL (<150)
[2021-09-30 11:28] LABS: Hemoglobin A1C 7.6 % (<5.7)
[2021-09-30 11:38] LABS: LDL Cholesterol Direct 99 mg/dL
== END 2021-09-30 10:35 | disposition home or self-care (01) ==
LOC: ANHLAB 10:40
PROVIDERS: PCP Family Medicine; Visit Provider Physician Assistant
DX: C50.912 Malignant neoplasm of unspecified site of left female breast (principal); E11.9 Type 2 diabetes mellitus without complications; E78.5 Hyperlipidemia, unspecified; I10 Essential (primary) hypertension; R79.89 Other specified abnormal findings of blood chemistry; Z79.4 Long term (current) use of insulin; G62.9 Polyneuropathy, unspecified
CPT/HCPCS: 36415; 80053; 80061; 82607; 82746; 83036; 84443; 85027

== ENCOUNTER 2021-10-03 12:41 | Outpatient (CLI) | payer MEDICARE, SELFPAY ==
--- NOTE | ~2021-10-03 | DEXA_ITS ---
Bone Density Report Name: DIYA BUNDY Age: 81 Sex: Female Ethnicity: White Date of : 1940 Indication: postmenopausal; height loss; cancer; hysterectomy; Referring Provider: Lio Garcia Study: Bone densitometry was performed. Exam Date: October 03, 2021 Accession number: [id number] Bone Density: Region BMD T-score Z-score Classification AP Spine (L1-L4) 1.068 0.2 2.9 Normal Femoral Neck (Left) 0.568 -2.5 -0.2 Osteoporosis Total Hip (Left) 0.825 -1.0 1.1 Normal Total Hip Bilateral Avg 0.826 -1.0 1.1 Osteopenia Femoral Neck (Right) 0.747 -0.9 1.4 Normal Total Hip (Right) 0.826 -1.0 1.1 Normal World Health Organization criteria for BMD impression classify patients as: Normal (T-score at or above -1.0), Osteopenia (T-score between -1.0 and -2.5), or Osteoporosis (T-score at or below -2.5). 10-year Fracture Risk: FRAX not reported because: Some T-score for Spine Total or Hip Total or Femoral Neck at or below -2.5 Clinical Information Provided by Patient: Has used the following medications: Vitamin D Has the following medical conditions: Cancer, Hysterectomy Patient maximum height was 66 Menopause Age: 38 No regular weight bearing exercise Does not regularly consume dairy products Onset of menses at age 14 Number of children 4 Impression: The patient has osteoporosis, based on the Left Femoral Neck T-score. Discussion: INCREASED RISK OF FRACTURE. BONE DENSITY IS UNDESIRABLY LOW AT ONE OR MORE SKELETAL SITES, CONSISTENT WITH POSTMENOPAUSAL OSTEOPOROSIS. This patient's lowest T-score meets the World Health Organization's (WHO) criteria for osteoporosis at one or more sites (T-score -2.5 or below). In untreated patients, the risk of osteoporotic fracture increases approximately two-fold for each 1.0 SD decrease in T-score. Low bone density is not the only risk factor for fracture; also consider factors such as patient's age, frailty or poor health, risk of falling, risk of injury, previous osteoporotic fracture, family history of osteoporosis, cigarette smoking, low body weight, etc. Not everyone with low bone mineral density has osteoporosis; osteomalacia and other metabolic bone disorders should also be considered. Patients who have osteoporosis should be evaluated for specific diseases and conditions (secondary causes) that may cause or contribute to bone loss. The [place] [employer] Endocrinologists (AACE) and National Osteoporosis Foundation (NOF) recommend pharmacologic intervention for all postmenopausal women whose T-score is in this range. The patient should follow a healthful lifestyle (good nutrition with adequate calcium and vitamin D, and appropriate weight-bearing exercise). Follow-Up: Consider a repeat BMD and Vertebral Fracture Assessment (VFA) exam in 2 years or sooner if medical
== END 2021-10-03 12:42 | disposition home or self-care (01) ==
LOC: ANHIMG 12:43
PROVIDERS: PCP Family Medicine; Visit Provider Internal Medicine Hematology & Oncology
DX: M65.89 Other synovitis and tenosynovitis, multiple sites (principal); M81.0 Age-related osteoporosis without current pathological fracture; M85.852 Other specified disorders of bone density and structure, left thigh; M85.851 Other specified disorders of bone density and structure, right thigh
CPT/HCPCS: 77080

== ENCOUNTER 2022-02-03 10:55 | Outpatient (CLI) | payer MEDICARE, SELFPAY | END 2022-02-03 10:56 | disposition home or self-care (01) | LOC: ANHLAB 10:57 | PROVIDERS: PCP Family Medicine; Visit Provider Physician Assistant | DX: E11.9 Type 2 diabetes mellitus without complications (principal) | CPT/HCPCS: 36415; 83036 ==

== ENCOUNTER 2022-06-08 11:24 | Outpatient (CLI) | payer MEDICARE, SELFPAY ==
--- NOTE | ~2022-06-08 | XR_ITS ---
EXAMINATION: XR hip RT min 3V w AP pelvis DATE: 06/08/2022 12:02 INDICATION: Right hip pain. TECHNIQUE: An anteroposterior view of the pelvis and 3 views of right hip were obtained. COMPARISON: None. FINDINGS: Bone alignment is normal. No fracture. There is mild osteoarthritis of the hips. There is m ild lumbar spondylosis. IMPRESSION: 1. Mild osteoarthritis of the hips. Reviewed, dictated and finalized at location A.
--- NOTE | ~2022-06-08 | XR_ITS ---
EXAMINATION: XR knee RT min 4V DATE: 06/08/2022 12:02 INDICATION: Right knee pain. TECHNIQUE: 4 views of right knee were obtained. COMPARISON: None. FINDINGS: Bone alignment is normal. No fracture. There is moderate osteoarthritis of lateral compartm ent and mild osteoarthritis of medial and patellofemoral compartments. No knee joint effusion. IMPRESSION: 1. Moderate right knee osteoarthritis. Reviewed, dictated and finalized at location A.
== END 2022-06-08 11:25 | disposition home or self-care (01) ==
PROVIDERS: PCP Family Medicine; Visit Provider Physician Assistant
DX: M17.11 Unilateral primary osteoarthritis, right knee (principal); M16.0 Bilateral primary osteoarthritis of hip
CPT/HCPCS: 73502; 73564

== ENCOUNTER 2022-06-30 10:36 | Outpatient (CLI) | payer MEDICARE, SELFPAY ==
[2022-06-30 11:15] LABS: Hemoglobin A1C 6.9 % (<5.7)
== END 2022-06-30 10:37 | disposition home or self-care (01) ==
PROVIDERS: PCP Family Medicine; Visit Provider Physician Assistant
DX: E11.9 Type 2 diabetes mellitus without complications (principal)
CPT/HCPCS: 36415; 83036

== ENCOUNTER 2022-07-27 15:15 | Outpatient (CLI) | payer MEDICARE, SELFPAY ==
--- NOTE | ~2022-07-27 | MM_ITS ---
EXAMINATION: MM screening dorys BI w lexy HISTORY: Screening mammogram, history of left breast cancer mammogram TECHNIQUE: Craniocaudal and mediolateral oblique 3-D tomosynthesis images were obtained and synthetic 2-D images were generated. CAD analysis was submitted and interpreted. COMPARISON: 06/03/2021, 11/30/2020, 04/15/2020, 07/24/2019 BREAST PARENCHYMAL COMPOSITION: There are scattered areas of fibroglandular density. FINDINGS: Scattered benign-appearing calcifications are present. Stable lumpectomy changes are noted in the left breast. No suspicious mass, calcification, or architectural distortion are identified in either breast to suggest malignancy. There has been no suspicious interval change. IMPRESSION: 1. No mammographic evidence of malignancy. 2. Recommend routine screening mammography while the patient remains in good health. BI-RADS Category 2: Benign finding(s). Reviewed, dictated and finalized at location A. IMPRESSION: 1. No mammographic evidence of malignancy. 2. Recommend routine screening mammography while the patient remains in good he alth. BI-RADS Category 2: Benign finding(s).
== END 2022-07-27 15:16 | disposition home or self-care (01) ==
PROVIDERS: PCP Family Medicine; Visit Provider Internal Medicine Hematology & Oncology
DX: Z12.31 Encounter for screening mammogram for malignant neoplasm of breast (principal)
CPT/HCPCS: 77063; 77067

== ENCOUNTER 2022-11-20 09:28 | Outpatient (CLI) | payer MEDICARE, SELFPAY ==
[2022-11-20 10:33] LABS: Cholesterol 168 mg/dL (0-200); HDL Direct 53 mg/dL; Triglycerides 110 mg/dL (<150)
[2022-11-20 10:44] LABS: LDL Cholesterol Direct 85 mg/dL
[2022-11-20 11:05] LABS: Hemoglobin A1C 7.6 % (<5.7)
[2022-11-20 11:58] LABS: Appearance Urine Cloudy (Clear); Bilirubin Urine 1+ (Negative); Blood Urine Trace-intact (Negative); Color Urine Yellow (Yellow); Glucose Urine UA Negative (Negative); Ketones Urine Negative (Negative); Leukocyte Esterase Ur 1+ LEU/UL (NEGATIVE); Nitrate Urine Negative (Negative); Protein Urine 1+ mg/dL (Negative)
[2022-11-20 12:14] LABS: Bacteria Urine 4+ /hpf; Mucus Urine Rare /lpf; Squamous Epithelial Cell Urine Many /hpf (Few); WBC Clumps Urine Present /HPF; WBC Urine >75 /hpf (0-3)
[2022-11-20 12:19] LABS: Add Urine Microscopic? YES
[2022-11-20 12:34] LABS: MALB Creatinine Ratio 25.1 mg/g (0-30); Microalbumin Urine Random 48.2 mg/L (0-16.7)
== END 2022-11-20 09:29 | disposition home or self-care (01) ==
PROVIDERS: PCP Family Medicine; Visit Provider Physician Assistant
DX: R79.89 Other specified abnormal findings of blood chemistry (principal); E11.9 Type 2 diabetes mellitus without complications; Z79.4 Long term (current) use of insulin; I10 Essential (primary) hypertension; E78.5 Hyperlipidemia, unspecified; G62.9 Polyneuropathy, unspecified
CPT/HCPCS: 36415; 80061; 81001; 82043; 83036; 84443

== ENCOUNTER 2023-01-08 08:17 | Outpatient (CLI) | payer MEDICARE, SELFPAY | END 2023-01-08 08:18 | disposition home or self-care (01) | PROVIDERS: PCP Family Medicine; Visit Provider Physician Assistant | DX: R30.0 Dysuria (principal); N39.0 Urinary tract infection, site not specified | CPT/HCPCS: 87077; 87086; 87186 ==

== ENCOUNTER 2023-01-19 10:44 | Outpatient (CLI) | payer MEDICARE, SELFPAY | END 2023-01-19 10:45 | disposition home or self-care (01) | PROVIDERS: PCP Family Medicine; Visit Provider Physician Assistant | DX: R30.0 Dysuria (principal) | CPT/HCPCS: 87086 ==

== ENCOUNTER 2023-02-09 09:31 | Outpatient (CLI) | payer MEDICARE, SELFPAY ==
[2023-02-09 10:39] LABS: Alanine Aminotransferase 24 U/L (6-35); Albumin Level 3.9 g/dL (3.5-5.1); Alkaline Phosphatase 49 U/L (38-126); Anion Gap 5 mmol/L (8-16); Aspartate Amino Transferase 23 U/L (14-36); Blood Urea Nitrogen 17 mg/dL (7-17); Calcium 8.9 mg/dL (8.4-10.2); Carbon Dioxide 30 mmol/L (22-30); Chloride 103 mmol/L (98-107); Estimated Glomerular Filt Rate 60; Glucose 140 mg/dL (65-110); Potassium 4.3 mmol/L (3.4-5.0); Sodium 138 mmol/L (137-145)
[2023-02-09 10:49] LABS: Hemoglobin A1C 7.6 % (<5.7)
== END 2023-02-09 09:32 | disposition home or self-care (01) ==
PROVIDERS: PCP Family Medicine; Visit Provider Family Medicine
DX: E11.9 Type 2 diabetes mellitus without complications (principal)
CPT/HCPCS: 36415; 80053; 83036

== ENCOUNTER 2023-06-22 09:42 | Outpatient (CLI) | payer MEDICARE, SELFPAY ==
[2023-06-22 10:07] LABS: Hemoglobin A1C 8.1 % (<5.7)
[2023-06-22 10:08] LABS: Alanine Aminotransferase 26 U/L (6-35); Albumin Level 3.5 g/dL (3.5-5.1); Alkaline Phosphatase 57 U/L (38-126); Anion Gap 2 mmol/L (8-16); Aspartate Amino Transferase 30 U/L (14-36); Bilirubin,Total 0.9 mg/dL (0.2-1.3); Blood Urea Nitrogen 23 mg/dL (7-17); Calcium 8.7 mg/dL (8.4-10.2); Carbon Dioxide 33 mmol/L (22-30); Chloride 100 mmol/L (98-107); Estimated Glomerular Filt Rate 53; Glucose 271 mg/dL (65-110); Potassium 4.2 mmol/L (3.4-5.0); Sodium 135 mmol/L (137-145)
== END 2023-06-22 09:43 | disposition home or self-care (01) ==
PROVIDERS: PCP Family Medicine; Visit Provider Physician Assistant
DX: E11.9 Type 2 diabetes mellitus without complications (principal); I10 Essential (primary) hypertension
CPT/HCPCS: 36415; 80053; 83036

== ENCOUNTER 2023-07-30 14:36 | Outpatient (CLI) | payer MEDICARE, SELFPAY ==
--- NOTE | ~2023-07-30 | MM_ITS ---
EXAMINATION: MM screening dorys BI w lexy HISTORY: Screening mammogram, history of left breast cancer TECHNIQUE: Craniocaudal and mediolateral oblique 3-D tomosynthesis images were obtained and synthetic 2-D images were generated. CAD analysis was submitted and interpreted. COMPARISON: 07/27/2022, 06/03/2021, 11/30/2020, 04/15/2020 BREAST PARENCHYMAL COMPOSITION: There are scattered areas of fibroglandular density. FINDINGS: Lumpectomy changes are demonstrated in the left breast. No suspicious mass, calcification, or architectural distortion are identified in either breast to suggest malignancy. There has been no suspicious interval change. IMPRESSION: 1. No mammographic evidence of malignancy. 2. Recommend routine screening mammography while the patient remains in good health. BI-RADS Category 2: Benign finding(s). Reviewed, dictated and finalized at location A. IMPRESSION: 1. No mammographic evidence of malignancy. 2. Recommend routine screening mammography while the patient remains in good he alth. BI-RADS Category 2: Benign finding(s).
== END 2023-07-30 14:37 | disposition home or self-care (01) ==
LOC: ANHIMG 14:38
PROVIDERS: PCP Family Medicine; Visit Provider Internal Medicine Hematology & Oncology
DX: Z12.31 Encounter for screening mammogram for malignant neoplasm of breast (principal)
CPT/HCPCS: 77063; 77067

== ENCOUNTER 2023-09-04 11:54 | Outpatient (CLI) | payer MEDICARE, SELFPAY ==
[2023-09-04 12:09] LABS: Basophils Absolute Auto 0.1 K/mm3 (0.0-0.1); Eosinophils Absolute Auto 0.3 K/mm3 (0-0.3); Eosinophils Percent Auto 4.3 % (0-4.4); Hematocrit 43.7 % (37.0-47.0); Hemoglobin 14.6 g/dL (12.0-15.0); Immature Granulocyte Absolute 0.02 K/mm3 (0.00-0.031); Immature Granulocyte Percent A 0.3 % (0-0.5); Lymphocytes Absolute Auto 2.29 K/mm3 (0.9-3.2); Lymphocytes Percent Auto 29.3 % (18.3-44.2); Mean Corpuscular HGB Conc 33.4 g/dl (32-36); Mean Corpuscular Hemoglobin 31.3 pg (26-34); Mean Corpuscular Volume 93.8 fl (80-100); Mean Platelet Volume 9.9 fl (7.4-10.4); Monocytes Absolute Auto 0.8 K/mm3 (0.1-0.6); Monocytes Percent Auto 10.2 % (2.6-8.5); Neutrophils Absolute Auto 4.3 K/mm3 (1.3-6.7); Neutrophils Percent Auto 54.9 % (45.5-73.1); Platelet Count Result 188 k/mm3 (150-375); Red Blood Count 4.66 M/mm3 (4.2-5.4); Red Cell Distribution Width 12.4 % (11.5-14.5); White Blood Count 7.8 K/mm3 (4.5-10.0)
[2023-09-04 13:57] LABS: Alanine Aminotransferase 24 U/L (6-35); Albumin Level 3.5 g/dL (3.5-5.1); Alkaline Phosphatase 51 U/L (38-126); Anion Gap 9 mmol/L (8-16); Aspartate Amino Transferase 29 U/L (14-36); Bilirubin,Total 0.7 mg/dL (0.2-1.3); Blood Urea Nitrogen 13 mg/dL (7-17); Calcium 9.1 mg/dL (8.4-10.2); Carbon Dioxide 26 mmol/L (22-30); Chloride 101 mmol/L (98-107); Estimated Glomerular Filt Rate 53; Glucose 203 mg/dL (65-110); Potassium 4.1 mmol/L (3.4-5.0); Sodium 136 mmol/L (137-145)
[2023-09-07 06:07] LABS: CA 15-3 17 U/mL (<32)
== END 2023-09-04 11:55 | disposition home or self-care (01) ==
LOC: ANHLAB 11:57
PROVIDERS: PCP Family Medicine; Visit Provider Internal Medicine Hematology & Oncology
DX: C50.012 Malignant neoplasm of nipple and areola, left female breast (principal); Z17.0 Estrogen receptor positive status [ER+]
CPT/HCPCS: 36415; 80053; 85025; 86300

== ENCOUNTER 2024-01-11 10:46 | Emergency (ER) | payer MEDICARE, SELFPAY ==
--- NOTE | ~2024-01-11 | US_ITS ---
EXAMINATION: US venous doppler [facility] DATE: 01/11/2024 11:50 INDICATION: Left lower limb swelling. TECHNIQUE: Grayscale ultrasound images without and with compression and Doppler ultrasound images of the left lower extremity veins were obtained. COMPARISON: None. FINDINGS: There is thrombus in left common femoral vein, profunda (deep) femoral vein, femoral vein, popliteal vein, peroneal veins, posterior tibial veins, and greater saphenous vein. IMPRESSION: 1. Extensive deep vein thrombosis in left lower limb. I called this result to Brennan Stacy. Reviewed, dictated and finalized at location A.
[2024-01-11 10:47] VITALS: BP 133/70; PULSE 94; RESP 20; TEMP 36.3; O2SAT 96
--- NOTE | 2024-01-11 10:51 | ED.EXTPRO ---
HPI - Extremity Problem General Chief complaint: Extremity Problem,Nontraumatic <Brennan Stacy APRN - Last Filed: 01/11/24 12:39> Stated complaint: left leg swelling <Brennan Stacy APRN - Last Filed: 01/11/24 12:39> Time Seen by Provider: 01/11/24 10:51 <Brennan Stacy APRN - Last Filed: 01/11/24 12:39> Source: patient <Brennan Stacy APRN - Last Filed: 01/11/24 12:39> Mode of arrival: ambulatory <Brennan Stacy APRN - Last Filed: 01/11/24 12:39> Limitations: no limitations <Brennan Stacy APRN - Last Filed: 01/11/24 12:39> History of Present Illness HPI Narrative: Lori is an 83-year-old female patient presenting to the emergency room today with complaints of left leg swelling x1 0.5 weeks. She reports that there is not any specific pain in the left leg. Has 1+ pitting edema to the left leg. Denies any shortness of breath, headache, or chest pain. No history of DVT in the past. Denies any blood clotting disorders. <Brennan Stacy APRN - Last Filed: 01/11/24 12:39> Related Data Home medications: Home Medications Medication Instructions Recorded Confirmed aspirin 325 mg tablet 325 mg PO DAILY 09/01/19 10/09/23 multivit with minerals-iron 18 1 tablet PO DAILY 04/24/22 10/09/23 mg-folic ac 400 mcg-vit K 25 mcg tablet (Adults Multivitamin) <Brennan Stacy APRN - Last Filed: 01/11/24 12:39> Allergies/Adverse reactions: Allergies Allergy/AdvReac Type Severity Reaction Status Date / Time ciprofloxacin AdvReac Mild Nausea Verified 01/11/24 10:46 codeine AdvReac Mild Nausea Verified 01/11/24 10:46 <Brennan Stacy APRN - Last Filed: 01/11/24 12:39> Review of Systems Review of Systems: Pertinent positives per HPI. Patient denies any fever, chills, rash, headache, visual changes, dizziness, cough, runny nose, sore throat, shortness of breath, chest pain, palpitations, nausea, vomiting, diarrhea, constipation, abdominal pain, or any urinary issues. <Brennan Stacy APRN - Last Filed: 01/11/24 12:39> [facility] Past Medical History Medical History: Medical History Anxiety H/O mammogram High cholesterol History of blood transfusion HTN (hypertension) (Unknown) Port-A-Cath in place (~2019) <Brennan Stacy APRN - Last Filed: 01/11/24 12:39> Surgical History Surgical History: Surgical History H/O colonoscopy H/O total hysterectomy History of partial mastectomy of left breast left axillary sentinel lymph node biopsy. 09/11/19 History of removal of Port-a-Cath History of tonsillectomy <Brennan Stacy APRN - Last Filed: 01/11/24 12:39> Family History Family History: Family History Father Hypertension Family history of cardiovascular disease Mother Hypertension Family history of cardiovascular disease Kidney failure Sibling Heart disease Arthritis <Brennan Stacy APRN - Last Filed: 01/11/24 12:39> Social History Social History: Social History Smoking packs per day: 0 Smoking cigarettes per day: 0.0 Years smoked: 0 Smoking pack-years: 0.00 Smoking status: Never smoker Second hand tobacco smoke exposure: No Alcohol intake: never Substance use: never Substance use type: does not use Living arrangements: with family Occupation/Education: retired Gender identity (if verbalized by the patient): Female Spiritual care concerns: No <SEEMA Mcintyre Last Filed: 01/11/24 12:39> Comments At the time of my signature, I reviewed and agree with the nursing past medical, surgical, social, and family history. There is no relevant family history pertinent to the patient complaint. <Brennan Stacy
[2024-01-11 11:52] LABS: Basophils Absolute Auto 0.1 K/mm3 (0.0-0.1); Basophils Percent Auto 0.8 % (0.2-1.2); Eosinophils Absolute Auto 0.2 K/mm3 (0-0.3); Eosinophils Percent Auto 1.7 % (0-4.4); Hemoglobin 12.9 g/dL (12.0-15.0); Immature Granulocyte Absolute 0.07 K/mm3 (0.00-0.031); Immature Granulocyte Percent A 0.8 % (0-0.5); Lymphocytes Absolute Auto 1.57 K/mm3 (0.9-3.2); Lymphocytes Percent Auto 18.1 % (18.3-44.2); Mean Corpuscular HGB Conc 33.1 g/dl (32-36); Mean Corpuscular Hemoglobin 31.5 pg (26-34); Mean Corpuscular Volume 95.4 fl (80-100); Mean Platelet Volume 9.4 fl (7.4-10.4); Monocytes Absolute Auto 0.7 K/mm3 (0.1-0.6); Monocytes Percent Auto 8.5 % (2.6-8.5); Neutrophils Absolute Auto 6.1 K/mm3 (1.3-6.7); Neutrophils Percent Auto 70.1 % (45.5-73.1); Platelet Count Result 260 k/mm3 (150-375); Red Blood Count 4.09 M/mm3 (4.2-5.4); Red Cell Distribution Width 12.1 % (11.5-14.5); White Blood Count 8.7 K/mm3 (4.5-10.0)
[2024-01-11 12:01] LABS: Alanine Aminotransferase 15 U/L (6-35); Albumin Level 3.8 g/dL (3.5-5.1); Alkaline Phosphatase 67 U/L (38-126); Anion Gap 7 mmol/L (4-12); Aspartate Amino Transferase 24 U/L (14-36); Bilirubin,Total 0.8 mg/dL (0.2-1.3); Blood Urea Nitrogen 15 mg/dL (7-17); Calcium 9.4 mg/dL (8.4-10.2); Carbon Dioxide 28 mmol/L (22-30); Chloride 102 mmol/L (98-107); Estimated CRCL calculation 36 ml/min; Estimated Glomerular Filt Rate 53; Glucose 186 mg/dL (65-110); Potassium 3.8 mmol/L (3.4-5.0); Sodium 137 mmol/L (137-145)
[2024-01-11 12:02] LABS: Prothrombin Time 13.3 Seconds (11.1-14.7)
[2024-01-11 12:03] LABS: Partial Thromboplastin Time 25.3 Seconds (22.3-36.8)
[2024-01-11 12:09] LABS: NT Pro B Type Natriuretic Pept 147 pg/mL (19.9-100)
[2024-01-11 13:01] VITALS: BP 116/63; PULSE 88; RESP 17; O2SAT 99
== END 2024-01-11 13:03 | disposition home or self-care (01) ==
PROVIDERS: Emergency Provider Nurse Practitioner Family; PCP Family Medicine
DX: I82.492 Acute embolism and thrombosis of other specified deep vein of left lower extremity (principal); Z79.82 Long term (current) use of aspirin
CPT/HCPCS: 36415; 80053; 83880; 85025; 85610; 85730; 93971; 99284

== ENCOUNTER 2024-02-21 08:10 | Outpatient (CLI) | payer MEDICARE, SELFPAY ==
[2024-02-21 08:52] LABS: Alanine Aminotransferase 14 U/L (6-35); Albumin Level 3.5 g/dL (3.5-5.1); Alkaline Phosphatase 64 U/L (38-126); Anion Gap 4 mmol/L (4-12); Aspartate Amino Transferase 17 U/L (14-36); Blood Urea Nitrogen 16 mg/dL (7-17); Carbon Dioxide 27 mmol/L (22-30); Chloride 106 mmol/L (98-107); Cholesterol 136 mg/dL (0-200); Estimated Glomerular Filt Rate 53; Glucose 145 mg/dL (65-110); HDL Direct 46 mg/dL; Potassium 3.9 mmol/L (3.4-5.0); Sodium 137 mmol/L (137-145); Triglycerides 155 mg/dL (<150)
[2024-02-21 09:03] LABS: LDL Cholesterol Direct 76 mg/dL
[2024-02-21 10:43] LABS: Creatinine Urine 81.8 mg/dL
[2024-02-21 10:46] LABS: MALB Creatinine Ratio 76.7 mg/g (0-30); Microalbumin Urine Random 62.7 mg/L (0-16.7)
[2024-02-21 10:48] LABS: Appearance Urine Turbid (Clear); Bacteria Urine 4+ /hpf; Bilirubin Urine Negative (Negative); Blood Urine 3+ (Negative); Color Urine Yellow (Yellow); Glucose Urine UA 2+ mg/dL (Negative); Ketones Urine Negative (Negative); Leukocyte Esterase Ur 2+ LEU/UL (Negative); Need Manual Microscopic Reviewed; Nitrate Urine Positive (Negative); Non Pathogenic Casts 0-2; Protein Urine 1+ mg/dL (Negative); RBC Urine >100 /hpf (0-2); Specific Grav Ur 1.014 (1.001-1.035); Squamous Epithelial Cell Urine Few /hpf (Few); Urobilinogen Urine 0.2 mg/dL (<2.0); WBC Urine >100 /hpf (0-3)
[2024-02-21 10:52] LABS: Add Urine Microscopic? YES
== END 2024-02-21 08:11 | disposition home or self-care (01) ==
LOC: ANHLAB 08:15
PROVIDERS: PCP Family Medicine; Visit Provider Physician Assistant
DX: Z00.00 Encounter for general adult medical examination without abnormal findings (principal); E11.9 Type 2 diabetes mellitus without complications; E78.5 Hyperlipidemia, unspecified; I10 Essential (primary) hypertension; R79.89 Other specified abnormal findings of blood chemistry; Z79.4 Long term (current) use of insulin
CPT/HCPCS: 36415; 80053; 80061; 81001; 82043; 83036; 84443

== ENCOUNTER 2024-02-28 12:04 | Emergency (ER) | payer MEDICARE, SELFPAY ==
--- NOTE | ~2024-02-28 | US_ITS ---
EXAMINATION: US venous doppler [facility] DATE: 02/28/2024 12:48 INDICATION: Left lower limb edema. TECHNIQUE: Grayscale ultrasound images without and with compression and Doppler ultrasound images of the left lower extremity veins were obtained. COMPARISON: Ultrasound 01/11/2024 FINDINGS: There is thrombus in left common femoral vein, profunda femoral vein, and femoral vein. The visualize d portions of the left popliteal vein, peroneal veins, posterior tibial veins, and greater saphenous vein outflow are patent. IMPRESSION: 1. Deep vein thrombosis involving left common femoral vein, profunda femoral vein, and femoral vein with interval improvement in distribution. Reviewed, dictated and finalized at location A. IMPRESSION: 1. Deep vein thrombosis involving left common femoral vein, profunda femoral v ein, and femoral vein with interval improvement in distribution.
--- NOTE | 2024-02-28 12:21 | ED.EXTPRO ---
HPI - Extremity Problem General Chief complaint: Extremity Problem,Nontraumatic Stated complaint: I think I have a blood clot Time Seen by Provider: 02/28/24 12:09 History of Present Illness HPI Narrative: 84-year-old female presenting to the emergency department for evaluation for a persistent DVT left lower extremity. On January 10 patient was diagnosed with a DVT. At that time patient had had swelling for approximately 1 week. Patient was found have an extensive DVT, primary care physician's office was consulted they were okay with patient being started on Xarelto. Since that time patient has had persistent swelling of the left lower extremity. Patient denies any chest pain denies any shortness of breath. Patient states that she has had persistent edema of the leg and did notice some redness of the leg. Family was concerned about the persistence of the DVT and possible underlying cellulitis. Related Data Home Medications Medication Instructions Recorded Confirmed aspirin 325 mg tablet 325 mg PO DAILY 09/01/19 01/22/24 multivit with minerals-iron 18 1 tablet PO DAILY 04/24/22 01/22/24 mg-folic ac 400 mcg-vit K 25 mcg tablet (Adults Multivitamin) Allergies Allergy/AdvReac Type Severity Reaction Status Date / Time ciprofloxacin AdvReac Mild Nausea Verified 02/28/24 12:28 codeine AdvReac Mild Nausea Verified 02/28/24 12:28 Review of Systems Review of Systems: APPEARANCE: Well appearing, no pain, no distress, well-nourished. HEAD: normocephalic, atraumatic. EYES: PERRLA/EOMI, conjunctivae clear. NOSE: Normal no drainage EARS:TMS clear with good light reflex. THROAT: Pharynx clear, no exudate. NECK: Supple. No adenopathy, no masses. RESPIRATORY: Airway patent, respirations nonlabored. Clear to auscultation bilaterally, no rales, rhonchi, wheezing. CARDIOVASCULAR: Regular rate and rhythm without murmurs rubs or gallops. ABDOMINAL: Soft, nontender, nondistended, normal bowel sounds MUSCULOSKELETAL: Moves all extremities. Strength/ROM intact, No edema, No calf tenderness. NEURO: Alert. Cranial nerves II through XII intact. Grossly intact SKIN: Petechiae over the left lower extremity, no evidence of cellulitis PMFSH Past Medical History Medical History Anxiety H/O mammogram High cholesterol History of blood transfusion HTN (hypertension) (Unknown) Port-A-Cath in place (~2019) Surgical History Surgical History H/O colonoscopy H/O total hysterectomy History of partial mastectomy of left breast left axillary sentinel lymph node biopsy. 09/11/19 History of removal of Port-a-Cath History of tonsillectomy Family History Family History Father Hypertension Family history of cardiovascular disease Mother Hypertension Family history of cardiovascular disease Kidney failure Sibling Heart disease Arthritis Social History Social History Smoking packs per day: 0 Smoking cigarettes per day: 0.0 Years smoked: 0 Smoking pack-years: 0.00 Smoking status: Never smoker Second hand tobacco smoke exposure: No Alcohol intake: never Substance use: never Substance use type: does not use Living arrangements: with family Occupation/Education: retired Gender identity (if verbalized by the patient): Female Spiritual care concerns: No Exam Narrative: APPEARANCE: Well appearing, no pain, no distress, well-nourished. HEAD: normocephalic, atraumatic. EYES: PERRLA/EOMI, conjunctivae clear. NOSE: Normal no drainage EARS:TMS clear with good light reflex. THROAT: Pharynx clear, no exudate. NECK: Supple. No adenopathy, no masses. RESPIRATORY: Airway patent, respirations nonlabored. Clear to auscultation bilaterally, no rales, rhonchi, wheezing. CARDIOVASCULAR: Regular ra
[2024-02-28 12:23] VITALS: BP 117/71; PULSE 90; RESP 16; TEMP 36.7; O2SAT 95
[2024-02-28 13:10] LABS: Basophils Absolute Auto 0.1 K/mm3 (0.0-0.1); Basophils Percent Auto 1.1 % (0.2-1.2); Eosinophils Absolute Auto 0.1 K/mm3 (0-0.3); Hematocrit 40.9 % (37.0-47.0); Hemoglobin 13.3 g/dL (12.0-15.0); Immature Granulocyte Absolute 0.02 K/mm3 (0.00-0.031); Immature Granulocyte Percent A 0.3 % (0-0.5); Lymphocytes Absolute Auto 1.86 K/mm3 (0.9-3.2); Lymphocytes Percent Auto 28.4 % (18.3-44.2); Mean Corpuscular HGB Conc 32.5 g/dl (32-36); Mean Corpuscular Hemoglobin 31.1 pg (26-34); Mean Corpuscular Volume 95.8 fl (80-100); Mean Platelet Volume 10.3 fl (7.4-10.4); Monocytes Absolute Auto 0.7 K/mm3 (0.1-0.6); Monocytes Percent Auto 10.4 % (2.6-8.5); Neutrophils Absolute Auto 3.8 K/mm3 (1.3-6.7); Neutrophils Percent Auto 57.8 % (45.5-73.1); Platelet Count Result 167 k/mm3 (150-375); Red Blood Count 4.27 M/mm3 (4.2-5.4); Red Cell Distribution Width 13.2 % (11.5-14.5); White Blood Count 6.6 K/mm3 (4.5-10.0)
[2024-02-28 13:20] LABS: Alanine Aminotransferase 14 U/L (6-35); Albumin Level 3.5 g/dL (3.5-5.1); Alkaline Phosphatase 59 U/L (38-126); Anion Gap 4 mmol/L (4-12); Aspartate Amino Transferase 21 U/L (14-36); Bilirubin,Total 0.9 mg/dL (0.2-1.3); Blood Urea Nitrogen 19 mg/dL (7-17); Calcium 9.2 mg/dL (8.4-10.2); Carbon Dioxide 27 mmol/L (22-30); Chloride 106 mmol/L (98-107); Estimated CRCL calculation 37 ml/min; Estimated Glomerular Filt Rate 48; Glucose 249 mg/dL (65-110); Potassium 4.1 mmol/L (3.4-5.0); Sodium 137 mmol/L (137-145)
[2024-02-28 13:21] LABS: INR 2.1
[2024-02-28 13:23] LABS: Partial Thromboplastin Time 32.8 Seconds (22.3-36.8)
[2024-02-28 13:41] VITALS: BP 142/86; PULSE 80; RESP 14; O2SAT 98
== END 2024-02-28 13:41 | disposition home or self-care (01) ==
PROVIDERS: Emergency Provider Emergency Medicine; PCP Family Medicine
DX: I82.412 Acute embolism and thrombosis of left femoral vein (principal); E78.00 Pure hypercholesterolemia, unspecified; E11.9 Type 2 diabetes mellitus without complications; I10 Essential (primary) hypertension; F41.9 Anxiety disorder, unspecified; Z90.710 Acquired absence of both cervix and uterus; Z90.12 Acquired absence of left breast and nipple; Z79.4 Long term (current) use of insulin; Z79.82 Long term (current) use of aspirin; Z79.899 Other long term (current) drug therapy; Z79.84 Long term (current) use of oral hypoglycemic drugs; Z79.01 Long term (current) use of anticoagulants
CPT/HCPCS: 36415; 80053; 85025; 85610; 85730; 93971; 99284

== ENCOUNTER 2024-04-11 13:31 | Outpatient (CLI) | payer MEDICARE, SELFPAY ==
--- NOTE | ~2024-04-11 | US_ITS ---
EXAMINATION: US venous doppler [facility] DATE: 04/11/2024 14:13 INDICATION: Left lower limb swelling. TECHNIQUE: Grayscale ultrasound images without and with compression and Doppler ultrasound images of the left lower extremity veins were obtained. COMPARISON: Ultrasound 02/28/2024 FINDINGS: The visualized portions of left popliteal vein, posterior tibial veins, and greater saphenous vein ou tflow are patent. There is thrombus in left common femoral vein, profunda femoral vein, and femoral v ein. IMPRESSION: 1. Persistent deep vein thrombosis involving the left common femoral vein, profunda femoral vein, an d femoral vein. Reviewed, dictated and finalized at location E. IMPRESSION: 1. Persistent deep vein thrombosis involving the left common femoral vein, pro earnest femoral vein, and femoral vein.
== END 2024-04-11 13:32 | disposition home or self-care (01) ==
PROVIDERS: PCP Family Medicine; Visit Provider Nurse Practitioner Family
DX: C50.012 Malignant neoplasm of nipple and areola, left female breast (principal); Z17.0 Estrogen receptor positive status [ER+]; I82.412 Acute embolism and thrombosis of left femoral vein
CPT/HCPCS: 93971

== ENCOUNTER 2024-04-25 11:22 | Outpatient (CLI) | payer MEDICARE, SELFPAY ==
[2024-04-25 12:33] LABS: Free T4 Free Thyroxine 1.07 ng/mL (0.78-2.19)
== END 2024-04-25 11:23 | disposition home or self-care (01) ==
PROVIDERS: PCP Family Medicine; Visit Provider Physician Assistant
DX: R30.0 Dysuria (principal); N39.0 Urinary tract infection, site not specified; E11.9 Type 2 diabetes mellitus without complications
CPT/HCPCS: 36415; 84439; 84443; 87086; 87088

== ENCOUNTER 2024-08-01 13:44 | Outpatient (CLI) | payer MEDICARE, SELFPAY ==
--- NOTE | ~2024-08-01 | DEXA_ITS ---
Bone Density Report Name: DIYA BUNDY Age: 84 Sex: Female Ethnicity: White Date of : 1940 Indication: postmenopausal; screening for osteoporosis; height loss; cancer; hysterectomy; Referring Provider: LASHAWN OVALLE Study: Bone densitometry was performed. Exam Date: August 01, 2024 Accession number: [id number] Bone Density: Region BMD T-score Z-score Classification AP Spine(L1-L4) 1.163 1.1 3.8 Normal Femoral Neck (Left) 0.618 -2.1 0.3 Osteopenia Total Hip (Left) 0.808 -1.1 1.1 Osteopenia Femoral Neck (Right) 0.710 -1.3 1.2 Osteopenia Total Hip (Right) 0.750 -1.6 0.6 Osteopenia Total Hip Mean 0.779 -1.4 0.9 Osteopenia World Health Organization criteria for BMD impression classify patients as: Normal (T-score at or above -1.0), Osteopenia (T-score between -1.0 and -2.5), or Osteoporosis (T-score at or below -2.5). 10-year Fracture Risk(1): Major Osteoporotic Fracture 16% Hip Fracture 4.8% Reported Risk Factors: [place] (), Neck BMD=0.618, BMI=29.7 (1) FRAX(R) Version 3.08. Fracture probability calculated for an untreated patient. Fracture probability may be lower if the patient has received treatment. Previous Exams: Region Exam Age BMD T-score BMD Change BMD Change Date g/cm2 vs Baseline vs Previous AP Spine (L1-L4) 08/01/2024 84 1.163 1.1 0.095 (8.9%)* 0.095 (8.9%)* 10/03/2021 81 1.068 0.2 Total Hip(Left) 08/01/2024 84 0.808 -1.1 -0.018 (-2.1%) -0.018 (-2.1%) 10/03/2021 81 0.825 -1.0 Total Hip(Right) 08/01/2024 84 0.750 -1.6 -0.077 (-9.3%) -0.077 (-9.3%) 10/03/2021 81 0.826 -1.0 *Denotes significance at 95% confidence level, LSC for AP Spine = 0.022 g/cm2, LSC for Total Hip = 0.027 g/cm2 Clinical Information Provided by Patient: Has used the following medications: Vitamin D Has the following medical conditions: Cancer, Hysterectomy Patient maximum height was 66 Menopause Age: 38 No regular weight bearing exercise Does not regularly consume dairy products Drinks caffeinated beverages Onset of menses at age 14 Number of children 4 Impression: The patient has low bone mass, based on the Left Femoral Neck T-score. The patient has an estimated ten-year risk of hip fracture of 4.8% and an estimated ten-year risk of major fracture of 16%, based on the WHO FRAX algorithm. The BMD for the Total Hip(Right) decreased, changing by -9.3% since the last DXA exam. Discussion: BONE DENSITY IS LOW AT ONE OR MORE SKELETAL SITES. THE PATIENT'S BMD AND CLINICAL RISK FACTORS CONTRIBUTE TO THIS PATIENT'S INCREASED RISK OF FRACTURE. This patient's lowest T-score is low at one or more skeletal sites. It meets the World Health Organization's (WHO) criteria for ?low bone mass? (T-score between -1.0 and -2.5). The patient's 10-year risk of hip fracture as calculated by FRAX exceeds the threshold where pharmacological therapy is recommended by the National Osteoporosis Foundation (NOF). However, all treatment decisions require clinical judgment and consideration of individual patient factors, including patient preferences, comorbidities, previous drug use, risk factors not captured in the FRAX model (e.g., frailty, falls, vitamin D deficiency, increased bone turnover, interval significant decline in bone density) and possible under or overestimation of fracture risk by FRAX. The patient should follow a healthful lifestyle (good nutrition with adequate calcium and vitamin D, and appropriate weight-bearing exercise). Follow-Up: Consider a repeat BMD and Vertebral Fracture Assessment (VFA) exam in 2 years or sooner if medically necessary, to reassess this patient's status. Reported by: JOSELINE on 08/01/2024 2:24:00 PM. Reviewed, dictated and finalized at location A. KAVITA
--- NOTE | ~2024-08-01 | MM_ITS ---
EXAMINATION: MM screening dorys BI w lexy HISTORY: Screening mammogram TECHNIQUE: Craniocaudal and mediolateral oblique 3-D tomosynthesis images were obtained and synthetic 2-D images were generated. CAD analysis was submitted and interpreted. COMPARISON: 07/30/2023, 07/27/2022, 06/03/2021, 11/30/2020 BREAST PARENCHYMAL COMPOSITION:Dense: The breasts are heterogeneously dense, which may obscure small masses. FINDINGS: Stable probable postoperative distortion/change of the left breast. No suspicious mass, cherelle cification, or architectural distortion are identified in either breast to suggest malignancy. There has been no suspicious interval change. IMPRESSION: No mammographic evidence of malignancy. Recommend routine screening mammography in one year. BI-RADS Category 2: Benign finding(s). Reviewed, dictated and finalized at [facility].
== END 2024-08-01 13:45 | disposition home or self-care (01) ==
LOC: ANHIMG 13:46
PROVIDERS: PCP Family Medicine; Visit Provider Internal Medicine Hematology & Oncology
DX: Z12.31 Encounter for screening mammogram for malignant neoplasm of breast (principal); C50.012 Malignant neoplasm of nipple and areola, left female breast; Z17.0 Estrogen receptor positive status [ER+]; M81.0 Age-related osteoporosis without current pathological fracture; Z78.0 Asymptomatic menopausal state; M85.852 Other specified disorders of bone density and structure, left thigh; M85.851 Other specified disorders of bone density and structure, right thigh
CPT/HCPCS: 77063; 77067; 77080

== ENCOUNTER 2024-08-08 13:25 | Outpatient (CLI) | payer MEDICARE, SELFPAY ==
--- NOTE | ~2024-08-08 | US_ITS ---
EXAMINATION:US venous doppler LE LT INDICATION:History of deep venous thrombosis of the left lower extremity TECHNIQUE: Multiple grayscale, color flow and Doppler images of the left lower extremity deep venous systems were obtained and reviewed. COMPARISON:04/11/2024 FINDINGS: There is chronic deep venous thrombosis of the left common femoral vein. The superficial fe moral and popliteal veins demonstrate normal respiratory variation, augmentation and compressibility. Color flow is also seen within the posterior tibial, peroneal, greater saphenous and profunda veins . IMPRESSION: 1: Persistent chronic deep venous thrombosis of the left common femoral vein. Reviewed, dictated and finalized at location B. INSPECTOR
[2024-08-08 14:01] LABS: Hemoglobin A1C 7.6 % (<5.7)
[2024-08-08 14:23] LABS: NT Pro B Type Natriuretic Pept 86 pg/mL (19.9-100)
[2024-08-08 14:34] LABS: Alanine Aminotransferase 21 U/L (6-35); Alkaline Phosphatase 89 U/L (38-126); Anion Gap 5 mmol/L (4-12); Aspartate Amino Transferase 27 U/L (14-36); Bilirubin,Total 0.8 mg/dL (0.2-1.3); Blood Urea Nitrogen 16 mg/dL (7-17); Calcium 9.1 mg/dL (8.4-10.2); Carbon Dioxide 29 mmol/L (22-30); Chloride 105 mmol/L (98-107); Estimated Glomerular Filt Rate 53; Glucose 177 mg/dL (65-110); Potassium 3.7 mmol/L (3.4-5.0); Sodium 139 mmol/L (137-145)
== END 2024-08-08 13:26 | disposition home or self-care (01) ==
PROVIDERS: Physician Assistant; PCP Family Medicine; Visit Provider Internal Medicine Hematology & Oncology
DX: I82.512 Chronic embolism and thrombosis of left femoral vein (principal); R06.02 Shortness of breath; I50.9 Heart failure, unspecified; R60.0 Localized edema; E11.9 Type 2 diabetes mellitus without complications; I10 Essential (primary) hypertension; Z79.4 Long term (current) use of insulin
CPT/HCPCS: 36415; 80053; 83036; 83880; 93971

== ENCOUNTER 2024-08-26 13:02 | Outpatient (CLI) | payer MEDICARE, SELFPAY ==
[2024-08-26 13:14] LABS: Basophils Absolute Auto 0.1 K/mm3 (0.0-0.1); Basophils Percent Auto 0.7 % (0.2-1.2); Eosinophils Absolute Auto 0.2 K/mm3 (0-0.3); Eosinophils Percent Auto 2.2 % (0-4.4); Hematocrit 43.1 % (37.0-47.0); Hemoglobin 14.4 g/dL (12.0-15.0); Immature Granulocyte Absolute 0.02 K/mm3 (0.00-0.031); Immature Granulocyte Percent A 0.3 % (0-0.5); Lymphocytes Absolute Auto 2.59 K/mm3 (0.9-3.2); Lymphocytes Percent Auto 37.5 % (18.3-44.2); Mean Corpuscular HGB Conc 33.4 g/dl (32-36); Mean Corpuscular Hemoglobin 31.6 pg (26-34); Mean Corpuscular Volume 94.7 fl (80-100); Monocytes Absolute Auto 0.9 K/mm3 (0.1-0.6); Monocytes Percent Auto 13.2 % (2.6-8.5); Neutrophils Absolute Auto 3.2 K/mm3 (1.3-6.7); Neutrophils Percent Auto 46.1 % (45.5-73.1); Platelet Count Result 188 k/mm3 (150-375); Red Blood Count 4.55 M/mm3 (4.2-5.4); Red Cell Distribution Width 12.8 % (11.5-14.5); White Blood Count 6.9 K/mm3 (4.5-10.0)
[2024-08-26 17:14] LABS: Alanine Aminotransferase 28 U/L (6-35); Alkaline Phosphatase 74 U/L (38-126); Anion Gap 6 mmol/L (4-12); Aspartate Amino Transferase 53 U/L (14-36); Bilirubin,Total 0.8 mg/dL (0.2-1.3); Blood Urea Nitrogen 20 mg/dL (7-17); Calcium 9.3 mg/dL (8.4-10.2); Carbon Dioxide 29 mmol/L (22-30); Chloride 104 mmol/L (98-107); Estimated Glomerular Filt Rate 43; Glucose 191 mg/dL (65-110); Potassium 4.6 mmol/L (3.4-5.0); Sodium 139 mmol/L (137-145)
[2024-08-27 09:27] LABS: CA 15-3 16 U/mL (<32)
== END 2024-08-26 13:03 | disposition home or self-care (01) ==
PROVIDERS: PCP Family Medicine; Visit Provider Internal Medicine Hematology & Oncology
DX: C50.012 Malignant neoplasm of nipple and areola, left female breast (principal); Z17.0 Estrogen receptor positive status [ER+]
CPT/HCPCS: 36415; 80053; 85025; 86300

== ENCOUNTER 2025-01-09 10:12 | Outpatient (CLI) | payer MEDICARE, SELFPAY ==
--- OUTSIDE RECORDS SUMMARY | 2025-01-09 10:46 | XMS_ITS | Data Portability ---
Author Organization MD - [facility] [employer] [facility], Main Office Address [address] [place] [address] Care Team Providers Care Coiled Tubing Supervisor Name Role Phone HITESH PALACIOS Primary Care Provider [phone] HITESH PALACIOS Referring Provider Assessment Encounter Date Assessment Date Assessment LastModified by Organization Details LastModified Time 05/08/2024 05/08/2024 This note is dictated and transcribed by [employer]. [employer] Outfitter variances may occur. Despite proofreading, typographical errors may occur. Occasional wrong-word or '[id number]' substitutions may have occurred due to the inherent limitations of voice recording. Read the chart carefully and recognize, using context, where substitutions have occurred. [email or web address] Not available 05/08/2024 14:59:08 09/09/2024 09/09/2024 By x-ray exam th e patient is noted to have severe lumbar spondylosis particularly at L3-4 which shows complete loss of disc space. She also has some minor spondylolisthesis of L4 anteriorly on L5. Small marginal osteophytes are noted off the corners of the vertebral bodies throughout the lumbar spine. Some cupping of the inferior surface of the L4 vertebral body is noted. No acute findings no fractures lesions or masses. The patient's knee x-rays also show moderately severe primary osteoarthritis today left slightly worse than right with tricompartmental changes and mild valgus deformities. We talked about treatment options today in detail the patient wanted proceed with cortisone as she has bilateral sacroiliac pain as well as bilateral knee pain. At her request under sterile conditions I injected the patient's bilateral knee joints in the patient's bilateral sacroiliac bursa in the office today with 4 cc 0.5% bupivacaine and 20 mg of Kenalog each for a total of 4 injections. The patient tolerated the procedures well. She will keep an eye on her blood sugars she has had some slight rise in her blood sugar previously from injections she will use extra insulin if necessary. I will see her back in 3 months if necessary. The patient voiced understanding agrees with the above plan her daughter did as well they will call for any further problems difficulties or questions. Not available 09/09/2024 15:42:43 12/09/2024 12/09/2024 The patient has advanced degenerative changes lumbar spine as described she also has moderately severe primary osteoarthritis both knees as described. We talked about treatment options today she wanted to proceed with cortisone all 4 sites she has chronic sacroiliac bilateral pain. At her request under sterile conditions I injected the patient's bilateral sacroiliac bursa and also the patient's bilateral knee joints in the office with 4 cc of 0.5% bupivacaine and 20 mg of Kenalog each for a total of 4 injections. The patient tolerated all 4 injections well. I will see her back as needed we can do this again in 3 months if necessary we will see how she does she voiced understanding and agreed with the above plan she will call for any further problems difficulties or questions. Not available 12/09/2024 15:40:15 12/11/2024 12/11/2024 This note is dictated and transcribed by [employer]. [employer] variances may occur. Despite proofreading, typographical errors may occur. Occasional wrong-word or 'xloik-b-pqlh' substitutions may have occurred due to the inherent limitations of voice recording. Read the chart carefully and recognize, using context, where substitutions have occurred. [email or web address] Not available 12/11/2024 16:03:23 Plan of Treatment Reminders Order Date Submit Date Provider Last Modified By Organization Details Last Modified Time Details Appointments Establish ed Patient 15 2024 02:00P M Enrique Neville DPM Not available Not available Not available Any 5 2024 01:00P M LILLIE Reyes Not available Not available Not available Lab None recorded. Referral None recorded. Procedures injection /aspirati on joint/bur sa (PROC) 2024 025 [email or web address] In-Office Order, Internal Use Only DO Not Attach Compendium DO Not Attach Compendium, Do Not Delete/merge, [id number] 12/09/2024 14:16:17 injection /aspirati on joint/bur sa (PROC) 2024 025 [email or web address] In-Office Order, Internal Use Only DO Not Attach Compendium DO Not Attach Compendium, Do Not Delete/merge, [id number] 12/09/2024 14:21:00 injection /aspirati on joint/bur sa (PROC) 2024 025 [email or web address] In-Office Order, Internal Use Only DO Not Attach Compendium DO Not Attach Compendium, Do Not Delete/merge, [id number] 12/09/2024 15:05:51 injection /aspirati on joint/bur sa (PROC) 2023 024 [email or web address] In-Office Order, Internal Use Only DO Not Attach Compendium DO Not Attach Compendium, Do Not Delete/merge, [id number] 09/09/2024 14:31:05 injection /aspirati on joint/bur sa (PROC) 2023 024 [email or web address] In-Office Order, Internal Use Only DO Not Attach Compendium DO Not Attach Compendium, Do Not Delete/merge, [id number] 09/09/2024 15:07:32 injection /aspirati on joint/bur sa (PROC) 2023 024 [email or web address] In-Office Order, Internal Use Only DO Not Attach Compendium DO Not Attach Compendium, Do Not Delete/merge, [id number] 09/09/2024 14:31:05 Surgeries None recorded. Imaging XR, knee 2023 024 [email or web address] [facility] [place], [address], [place], [address], 09/09/2024 16:12:23 XR, lumbar spine 2023 024 [email or web address] [facility] [place], [address], [place], [address], 09/09/2024 16:12:23 Medication Orders bupivacai ne HCl 0.5 % (5 mg/mL) injection solution [address] [place] [address] [id number], [address] [facility], [place], [place], [id number], 12/09/2024 15:05:51 Kenalog 10 mg/mL suspensio n for injection [address] [place] [address] [facility] #16795, [address] [facility], [place], [place], [id number], 12/09/2024 15:05:51 bupivacai ne HCl 0.5 % (5 mg/mL) injection solution [address] [place] [address] [facility] #25510, [address] [facility], [place], [id number], 12/09/2024 15:05:51 Kenalog 10 mg/mL suspensio n for injection [address] [place] [address] [facility] #26557, [address] [facility], [place], [id number], 12/09/2024 15:05:51 bupivacai ne HCl 0.5 % (5 mg/mL) injection solution [address] [place] [address] [facility] #33985, [address] [place], [place], [id number], 12/09/2024 15:05:51 Kenalog 10 mg/mL suspensio n for injection [address] [place] [address] [facility] #26677, [address] [facility], [place], [place], [id number], 12/09/2024 15:05:51 bupivacai ne HCl 0.5 % (5 mg/mL) injection solution 2023 024 [email or web address] [facility] #87333, [address] [facility], [place], [place], [id number], 09/09/2024 16:12:23 Kenalog 10 mg/mL suspensio n for injection 2023 024 [email or web address] [facility] #41107, [address] [facility], [place], [place], [id number], 09/09/2024 16:12:23 bupivacai ne HCl 0.5 % (5 mg/mL) injection solution 2023 024 [email or web address] [facility] #31767, [address] [facility], [place], [place], [id number], 09/09/2024 16:12:23 Kenalog 10 mg/mL suspensio n for injection 2023 024 [email or web address] [facility] #98635, [address] [facility], [place], [place], [id number], 09/09/2024 16:12:23 bupivacai ne HCl 0.5 % (5 mg/mL) injection solution 2023 024 [email or web address] [facility] #27763, [address] [place], [place], [id number], 09/09/2024 16:12:23 Kenalog 10 mg/mL suspensio n for injection 2023 024 [email or web address] [facility] #70934, [address] [place], [place], [id number], 09/09/2024 16:12:23 Patient TargetsNo targets recorded. Patient InstructionsNo instructions recorded. Reason for Referral None Reported. Results Created Date Observation Date Name Description Value Unit Range Abnormal Flag Note LastModifiedBy Organization Detail LastModifiedTime 09/09/20 24 XR, knee No observ ation record ed. [email or web address] [facility] [place] [address], [address], 09/09/2024 15:44:21 09/09/20 XR, lumba r spine No observ ation record ed. [email or web address] [facility] [place] [address], [place], [address], 09/09/2024 15:45:51 Result Notes None recorded. Problems Name Problem SNOMED Code Status Onset Date Resolution Date Notes Provider Name and Address Organization Details Recorded Time Bilateral osteoarthr itis of knees 2915325994205 07 Active 2022 Not Available [facility] 3 01:24:46 Pain in right sacroiliac joint 5164508524957 9107 Active 2021 Not Available [facility] 3 01:24:46 Osteoarthr itis of right knee joint 7773566060186 00 Active 2021 Not Available [facility] 3 01:24:46 Lumbar spondylosi s 484129606 Active 2022 LILLIE Reyes [address] [place] [address], [place], [address] , [place] [facility] 3 14:42:12 Arthritis 9473259 Active 2023 Rica preston [place] [facility] 4 15:10:54 Breast problem 126347455 Active 2023 Rica preston, [place] [facility] 4 15:11:05 Malignant tumor of breast 706153010 Active 2023 Rica preston [place] [facility] 4 15:11:17 Diabetes mellitus 05469600 Active 2023 Rica preston [place] [facility] 4 15:11:25 Hyperchole sterolemia 56284075 Active 2023 Rica preston [facility] [employer] [facility] 4 15:11:38 Hypertensi ve disorder 34030813 Active 2023 Rica Julieta preston, [facility] [employer] [facility] 4 15:11:49 Diabetic peripheral neuropathy 551840489 Active 2023 Enrique Neville DPM [address], [place], [address] , [employer] [facility] [employer] [facility] 4 15:26:34 Dystrophia unguium 10181674 Active 2023 Enrique Neville DPM [address], [address], [place], [address] , [employer] [facility] [employer] [facility] 4 15:26:38 Swelling of bilateral lower limbs 323044885 Active 2023 Enrique Neville DPM [address], [address], [place], [address] , [employer] [facility] [employer] [facility] 4 15:27:54 Deep venous thrombosis of lower extremity 480495849 Active 2023 Enrique Neville DPM [address], [place], [address] , [employer] [facility] [employer] [facility] 4 14:39:49 Pain in left sacroiliac joint 9120760164085 9102 Active 2023 Tanika Goodrich mohan, [facility] [employer] [facility] 4 15:05:57 Diabetic on insulin 372069250 Active 2024 Enrique Neville DPM [address], [place], [address] , [employer] [facility] [employer] [facility] 5 16:03:20 Notes:RADIATION/CHEMOTHERAPY Problem Notes None recorded. Procedures Surgical History Date Name Laterality Status Provider Name and Address Organization Details Recorded Time 12/12/19 25 Nail Debridement completed Enrique Neville DPM [address], [place], [address], [employer] [facility] [employer] [facility] 12/16/2024 10:01:12 12/12/20 24 Nail Debridement completed Enrique Neville DPM [address], [place], [address], [facility] [employer] 09/15/2024 08:44:26 05/08/20 24 Nail Debridement completed Enrique Neville DPM [address], [place], [address], [employer] 05/08/2024 14:58:48 02/07/20 24 Nail Debridement completed Enrique Neville DPM [address], [place], [address], [employer] 02/07/2024 14:39:30 10/25/19 24 Nail Debridement completed Enrique Neville DPM [address], [place], [address], [employer] [facility] 10/25/2023 15:26:28 05/31/20 23 Ortho - Cortisone Injection completed Chris Velez MD [address], [place], [address], [employer] [facility] [employer] [facility] 05/31/2023 14:30:18 01/26/20 23 Ortho - Cortisone Injection completed Chris Velez MD [address], [place], [address], [employer] [facility] [employer] [facility] 01/25/2023 13:39:35 Masectomy completed Not Available [facility] 11/30/2022 01:23:33 Imaging Results Imaging Date Name Status LastModified by Organiz [facility] Details LastModified Time 09/09/2024 XR, knee completed [email or web address] [facility] [place] [address], [place], [address], 09/09/2024 15:44:21 09/09/2024 XR, lumbar spine completed [email or web address] [facility] [place] [address], [place], [address], 09/09/2024 15:45:51 Procedure Notes None recorded. Medical Equipment None Reported. Allergies Allergen ID Allergen Name Allergen Category Reaction Reaction Severity Criticality Documentation Date Start Date Code Code System Note Provider Name and Address Organization Details Recorded Time 64166 codeine medicatio n nausea Not available Not available 11/30/2022 2670 RxNorm Not Available [facility] 3 01:26:11 46739 Cipro medicatio n Not available Not available Not available 09/04/202350074 3 RxNorm MAYDA Loja, [place] - [facility] [employer] 3 13:54:57 Medications Name Sig Start Date Stop Date Status Note LastModified by Organization Details LastModified Time celecoxib 200 mg capsule TAKE 1 CAPSULE BY MOUTH DAILY 06/22 completed Not Available Not Available Not Available amoxicillin 500 mg capsule TK FOUR CS PO 1 HOUR B DAPP 09/09 completed Not Available Not Available Not Available anastrozole 1 mg tablet 10/25 completed Not Available Not Available Not Available atorvastati n 20 mg tablet TAKE 1 TABLET BY MOUTH DAILY active Not Available Not Available No t Available fluconazole 150 mg tablet TAKE 1 TABLET BY MOUTH DAILY FOR 7 DAYS 10/25 completed Not Available Not Available Not Available metoprolol succinate ER 50 mg tablet,exte nded release 24 hr TAKE 1 TABLET BY MOUTH TWICE DAILY active Not Available Not Available No t Available ondansetron HCl 4 mg tablet active Not Available Not Available Not Available bupivacaine HCl 0.5 % (5 mg/mL) injection solution Take 4 mL by injection route. 2024 active Not Available Not Available Not Avai lable tramadol 50 mg tablet TAKE 1 TABLET BY MOUTH EVERY 4-6 HOURS NEEDED PAIN 09/09 completed Not Available Not Available Not Available amoxicillin 500 mg tablet TAKE 1 TABLET BY MOUTH THREE TIMES DAILY UNTIL GONE 10/25 completed Not Available Not Available Not Available meloxicam 7.5 mg tablet TAKE 1 TABLET BY MOUTH DAILY NEEDED FOR ARTHRITIS PAIN 02/06 completed Not Available Not Available Not Available amoxicillin 875 mg tablet TAKE 1 TABLET BY MOUTH NOW THEN 1 TABLET BY MOUTH TWICE DAILY UNTIL ALL TAKEN 09/04 completed Not Available Not Available Not Available Kenalog 10 mg/mL suspension for injection Take 2 mL by injection route. [address] [facility]: 0003- 0494- 20 Not Available Not Available Not Available Flagyl 500 mg tablet Take 1 tablet every 8 hours by oral route. 10/25 completed Not Available Not Available Not Available telmisartan 80 mg-hydrochl orothiazide 12.5 mg tablet TAKE 1 TABLET BY MOUTH DAILY active Not Available Not Available No t Available diclofenac sodium 75 mg tablet,vivian yed release Take 1 tablet twice a day by oral route. 09/04 completed Not Available Not Available Not Available gabapentin 100 mg capsule TAKE 2 CAPSULES BY MOUTH TWICE DAILY NEEDED active Not Available Not Available No t Available lorazepam 1 mg tablet TAKE 1 TABLET BY MOUTH TWICE DAILY NEEDED FOR ANXIETY active Not Available Not Available No t Available ondansetron 4 mg disintegrat ing tablet DISSOLVE 1 TABLET ON THE TONGUE EVERY 8 HOURS NEEDED FOR NAUSEA OR VOMITING active Not Available Not Available No t Available tamoxifen 20 mg tablet 05/08 completed Not Available Not Available Not Available glipizide 5 mg tablet TAKE 1 TABLET BY MOUTH TWICE DAILY active Not Available Not Available No t Available Marcaine (PF) 0.5 % (5 mg/mL) injection solution Take 40 mg by injection route. 02/06 completed Not Available Not Available Not Available nitrofurant oin monohydrate /macrocryst als 100 mg capsule TAKE 1 CAPSULE BY MOUTH EVERY 12 HOURS FOR 5 DAYS 05/08 completed Not Available Not Available Not Available aspirin 02/06 completed Not Available Not Available Not Available Lantus Solostar U-100 Insulin 100 unit/mL (3 mL) subcutaneou s pen ADMINISTE R 30 UNITS UNDER THE SKIN DAILY active Not Available Not Available No t Available Humalog KwikPen (U-100) Insulin 100 unit/mL subcutaneou s active Not Available Not Available Not Available ropivacaine (PF) 5 mg/mL (0.5 %) injection solution Take 40 mg by injection route. 09/[address] [facility] [phone] -064- 01 Not Available Not Available Not Available Xarelto 15 mg tablet 02/06 completed Not Available Not Available Not Available Xarelto 20 mg tablet TAKE 1 TABLET BY MOUTH ONCE DAILY WITH THE EVENING MEAL. active Not Available Not Available No t Available True Metrix Glucose Test Strip USE TO CHECK BLOOD SUGAR THREE TIMES DAILY active Not Available Not Available No t Available Humalog KwikPen U-200 Insulin 200 unit/mL (3 mL) subcutaneou s ADMINISTE R 20 UNITS UNDER THE SKIN DAILY BEFORE BREAKFAST DIRECTED active Not Available Not Available No t Available Tresiba FlexTouch U-200 insulin 200 unit/mL (3 mL) subcutaneou s pen ADMINISTE R 55 UNITS UNDER THE SKIN DAILY active Not Available Not Available No t Available Paxlovid 300 mg (150 mg x 2)-100 mg tablets in a dose pack TK 2 NIRMATREL VIR TS AND 1 RITONAVIR T TOGETHER PO BID FOR 5 DAYS BID FOR 5 DAYS 06/22 completed Not Available Not Available Not Available Vitals Date Recorded Body height Body mass index (BMI) Body weight Heart rate Respiratory rate Body temperature Oxygen saturation Oxygen saturation in Arterial blood by Pulse oximetry Systolic blood pressure Diastolic blood pressure Provider Name and Address Organization Details Last Updated DateTime 4 167.64 cm 26.6 kg/m2 84234.7 4 g 86 /min 14 /min 98.6 [degF] 98 % 98 % 120 mm[Hg] 72 mm[Hg] Carisa Bautista MA [facility] [employer] 4 14:31:04 Date Recorded Body height Body mass index (BMI) Body weight Provider Name and Address Organization Details Last Updated DateTime 09/09/2024 167.64 cm 26.6 kg/m2 24159.74 g Keyana Franks CNA MD [employer] [facility] [employer] 09/09/2024 14:23:37 Date Recorded Body height Body mass index (BMI) Body weight Heart rate Respiratory rate Oxygen saturation Oxygen saturation in Arterial blood by Pulse oximetry Systolic blood pressure Diastolic blood pressure Provider Name and Address Organization Details Last Updated DateTime 4 167.64 cm 26.6 kg/m2 18076.7 4 g 96 /min 14 /min 97 % 97 % 136 mm[Hg] 80 mm[Hg] Maureen Fernandez MD [employer] [facility] [employer] [facility] 4 15:38:50 Date Recorded Body height Body mass index (BMI) Body weight Pain severity - 0-10 verbal numeric rating [Score] - Reported Provider Name and Address Organization Details Last Updated DateTime 12/09/2024 167.64 cm 26.6 kg/m2 72468.74 g 2 Kinsey SEKOU Boyle [facility] [employer] [facility] 12/09/2024 14:13:32 Date Recorded Body height Body mass index (BMI) Body weight Heart rate Respiratory rate Oxygen saturation Oxygen saturation in Arterial blood by Pulse oximetry Systolic blood pressure Diastolic blood pressure Provider Name and Address Organization Details Last Updated DateTime 167.64 cm 26.6 kg/m2 96229.7 4 g 80 /min 14 /min 98 % 98 % 134 mm[Hg] 76 mm[Hg] Maureen Jim MD [employer] [facility] [employer] 15:22:40 Social History Question Answer Notes LastModified by Offerm[employer] ion Details LastModified Time Tobacco Smoking Status Never Smoker Not Available [facility] 11/30/2022 01:23:30 What Is Your Level Of Alcohol Consumption? None [id number] Information not available 11/30/2022 Sex: Unknown Functional Status None recorded. Mental Status None recorded. Family History Relationship Description Onset Age of this Age Resolved Age Notes LastModified by Organization Details LastModified Time Brother Family history of malignant neoplasm [email or web address] Not available 2022 13:57:36 Mother Hypertensive disorder [email or web address] Not available 2022 13:57:48 Mother Kidney disease [email or web address] Not available 2022 13:58:03 Mother Heart disease [email or web address] Not available 2023 15:12:46 Unspecified Relation Diabetes mellitus [email or web address] Not available 2022 13:58:13 Unspecified Relation Family history of malignant neoplasm AUNT [email or web address] Not available 2023 15:13:01 Father Cerebrovascu lar accident [email or web address] Not available 15:12:26 Father Heart disease [email or web address] Not available 2023 15:12:46 Father Hypertensive disorder [email or web address] Not available 2023 14:25:06 Sister Blood coagulation disorder [email or web address] Not available 2023 14:25:39 Notes:cancer-sister Medical History Condition Response CANCER: SPECIFY Y ARTHRITIS Y USE OF BLOOD THINNERS Y BLOOD CLOTS Y DIABETES, TYPE Y OSTEOPOROSIS Y USE OF NSAIDS Y RADIATION / CHEMOTHERAPY Y HYPERTENSION Y HIGH CHOLESTEROL / HYPERLIPIDEMIA Y Gynecological HistoryNo gynecological history recorded. Obstetrics History GPAL:G 0 P 0 0 0 0 Past Encounters Encounter ID Performer Location Encounter Start Date Encounter Closed Date Diagnosis/Indication Diagnosis SNOMED-CT Code Diagnosis ICD10 Code Diagnosis Note [id number] [facility] [place] [address] [place] [address] 06/22/2022 00:00:00 06/22/2022 12:14:17 [id number] [facility] [place] [address] [place] [address] 07/24/2022 00:00:00 07/24/2022 10:44:41 [id number] [facility] [place] [address] [place] [address] 10/24/2022 00:00:00 10/24/2022 14:47:12 [id number] Chris Velez MD [facility] [place] [address] [place] [address] 01/25/2023 13:24:16 01/25/2023 13:58:52 Bilateral osteoarthritis of knees 4263894504 85375 M17.0 Pain in ri ght sacroiliac joint 1335191162 2617717 M53.3 [id number] Chris Velez MD [facility] [place] [address] [place] [address] 05/31/2023 14:22:01 05/31/2023 15:57:10 Bilateral osteoarthritis of knees 7538142477 77565 M17.0 Pain in ri ght sacroiliac joint 3177609510 2351281 M53.3 [id number] LILLIE Reyes [facility] [place] [address] [place] [address] 09/04/2023 13:37:58 09/04/2023 14:37:06 Pain in right sacroiliac joint 2080652672 9680565 M53.3 Bilateral osteoarthritis of knees 7321225423 15381 M17.0 Lumbar spondylosis 73546 0009 M47.714 [id number] Enrique Neville DPM [facility] [place] [address] [place] [address] 10/25/2023 14:59:01 10/31/2023 09:34:54 Diabetic peripheral neuropathy 298346093 E11.40 Continue diabetic control per PCP Follow-up in 3-4 months for diabetic foot care Dystrophia unguium 78123 009 L60.3 Nails debrided 1 through 10 without incident Swelling o f bilateral lower limbs 654250549 M79.89 Recommend bilateral compressio n stockings- over-the-c ounter [id number] LILLIE Reyes [facility] [place] [address] [place] [address] 12/06/2023 14:34:01 12/06/2023 15:03:23 Bilateral osteoarthritis of knees 2629973774 29138 M17.0 Pain in ri ght sacroiliac joint 2613551286 5046135 M53.3 Lumbar spondylosis 34900 0009 M47.787 [id number] Enrique Neville DPM [facility] [place] [address] [place] [address] 02/07/2024 14:22:00 02/07/2024 14:52:47 Diabetes mellitus 07173486 E11.9 continue diabetic control per PCP recommenda tions Diabetic p eripheral neuropathy 132886733 E11.40 Continue diabetic shoe gearcheck feet daily for wounds infectionF ollow-up in 3 months for diabetic foot care Dystrophia unguium 64791 009 L60.3 Nails debrided 1 through 10 without incident Deep venou s thrombosis of lower extremity [id number] I82.409 continue PCP recommenda tions- on Xarelto [id number] Enrique Neville DPM [facility] [place] [address] [place] [address] 05/08/2024 14:16:44 05/09/2024 09:39:55 Diabetes mellitus [id number] E11.9 continue diabetic control per PCP recommenda tions Diabetic p eripheral neuropathy [id number] E11.40 Continue diabetic shoe gearcheck feet daily for wounds infectionF ollow-up in 3 months for diabetic foot care Dystrophia unguium 36348 009 L60.3 Nails debrided 1 through 10 without incident [id number] LILLIE Reyes S_[facility] [place] [address] [place] [address] 09/09/2024 14:10:27 09/09/2024 15:12:57 Bilateral osteoarthritis of knees [id number] 60312 M17.0 Pain in ri ght sacroiliac joint [id number] 3777264 M53.3 Lumbar spondylosis 73808 0009 M47.896 Pain in le ft sacroiliac joint [id number] M53.3 [id number] Enrique Neville DPM [facility] Pod[facility] [place] [address] [place] [address] 09/11/2024 15:33:43 09/26/2024 07:56:37 Diabetes mellitus [id number] E11.9 continue diabetic control per PCP recommenda tions Diabetic p eripheral neuropathy [id number] E11.40 Continue diabetic shoe gearcheck feet daily for wounds infectionF ollow-up in 3 months for diabetic foot care Dystrophia unguium 78508 009 L60.3 Nails debrided 1 through 10 without incident [id number] LILLIE Reyes S_[facility] [place] [address] [place] [address] 12/09/2024 14:10:04 12/09/2024 15:49:11 Bilateral osteoarthritis of knees [id number] 55634 M17.0 Pain in le ft sacroiliac joint 7828146816 7447949 M53.3 Pain in ri ght sacroiliac joint [id number] 2798895 M53.3 Lumbar spondylosis 04533 0009 M47.858 [id number] Enrique Neville DPM [facility] Podiat[facility] [place] [address] [place] [address] 12/11/2024 15:14:39 12/16/2024 11:40:06 Diabetes mellitus [id number] E11.9 continue diabetic control per PCP recommenda tions Dystrophia unguium 42049 009 L60.3 Nails debrided 1 through 10 without incident Diabetic on insulin 1707 03466 Z79.4 Health Concerns Section Related Observation LastModified by Organization Detai ls LastModified Time None Recorded Concern Status LastModified by Organization Details LastModified Time None Recorded Advance Directives Directive None Recorded Payers Encounter Date Sequence Insurance Name Policy Number Policy Shirley Covered Member ID Shirley Member ID Guarantor Name 05/08/2024 1 [place] Lori Velázquez [id number] 3 Lori Eber 05/08/2024 2 [place] [id number] Lorira Carrilloman [id number] Lori Eber 09/09/2024 1 [place] Lori Velázquez [id number] 3 Lori Eber 09/09/2024 2 [place] [id number] Lorira Carrilloman [id number] Lori Eber 09/11/2024 1 [place] Lori [place]ill[place] [id number] 3 Lori Eber 09/11/2024 2 [place] [id number] Lori Eber [id number] Lori [place] 12/09/2024 1 [place] Lori Velázquez [id number] 3 Lori Eber 12/09/2024 2 [place] [id number] Lori Eber [id number] Lori Eber 12/11/2024 1 [place] Lori Velázquez [id number] 3 Lori [place] 12/11/2024 2 [place] [id number] Lori Beer [id number] Lori [place] Notes Date Note Type Note Provider Name and Address Organization Details Recorded Time 05/08/2024 text/html . Patient is an 84-year-old female diabetic with neuropathy she returns for follow-up on diabetic foot care she denies any new complaints states her nails are long like to have them cut. Patient continues to have mild pitting edema of the left lower leg secondary to a DVT which she had a recent follow-up with vascular they stated that it is normal and they will continue treatment with follow-up ultrasound in 3 months she denies any troubles breathing or chest discomfort. Patient denies any other complaints. Enrique Neville DPM [address], [place], [address], [place] [facility] [place] [employer] 05/08/2024 14:59:28 09/09/2024 text/html Patient returns I have not seen her for 9 months. She is an 84-year-old female. She complains today of bilateral knee pain as well as low back pain bilateral sacroiliac regions. She denies any new trauma no injuries and no new specific complaints other than now for left sacroiliac region hurts as much as the right. Previously I had given her a shot of cortisone in the right sacroiliac region this helped tremendously. She got great relief from the shots of cortisone in her knees as well this lasted about 3 months. She has been putting off coming back as she was diagnosed with a DVT in the left lower extremity that was fairly extensive in nature. This was diagnosed in December of this year she is now on Xarelto chronically. She can not take oral anti-inflammatory medication and has been trying to get by with Tylenol heating pad and gabapentin. She does have a history of neuropathy in her hands and feet she is diabetic and uses insulin. She has been putting up with the pain states it is about an 8 on a scale of 1-10. She denies any radicular pain down her legs no numbness or tingling no bowel or bladder symptoms or weakness. For the most part she really does not have any swelling in the left lower extremity due to the DVT. She does have aching pain in both knees it limits her activities she reports grinding crepitation throbbing and aching in her knees and also chronic deep pain in her lumbar region right worse than left sacroiliac regions. She comes in today requesting cortisone and treatment for the above issues. New past medical history sheet was reviewed and signed on intake sheet of today's date drug allergies current medications family social history previous surgical history 10 point review of systems was reviewed and discussed in detail today with the patient and her daughter. LILLIE Reyes [address], [address], [place], [address], [place] 09/09/2024 15:47:23 09/11/2024 text/html . Patient is an 84-year-old female diabetic shoe returns the office for routine diabetic foot care she states overall she is doing well she denies any open wounds or infection. Patient states her nails are long would like to have them cut as she is unable to cut them. Patient denies any other complaints. Enrique Neville DPM [address], [place], [address], [place] 09/15/2024 08:44:46 12/09/2024 text/html The patient retu rns with bilateral knee pain and bilateral sacroiliac pain. The patient has severe lumbar spondylosis particularly at L3-4 which causes complete loss of disc space and minor spondylolisthesis of L4 anteriorly on L5. She has multiple levels of degenerative change and bilateral sacroiliac pain no radicular pain no weakness numbness or tingling or bowel or bladder symptoms. She has done well with previous cortisone injections she would like to repeat those today. She also has moderately severe primary osteoarthritis left slightly worse than right in the knees with tricompartmental changes and mild valgus deformities. She denies any new problems with the knees no erythema effusion or signs of infection. She is not interested in surgical intervention she gets by with conservative measures it has been 3 months since her last injections she wants to repeat those all 4 today. LILLIE Reyes [address], [place], [address], [place] 12/09/2024 15:42:36 12/11/2024 text/html . Patient is a 84-year-old female diabetic who returns for diabetic foot care. Patient denies any new complaints. Patient has elongated toenails would like to have cut. Patient denies any recent injury of the foot she denies any open wounds. Patient denies any intermittent cramping with walking. Enrique Neville DPM [address], [place], [address], [place] 12/16/2024 10:01:49 OBGyn Episode No OBEpisode recorded.
--- OUTSIDE RECORDS SUMMARY | 2025-01-09 10:46 | XMS_ITS | Encounter Summary ---
Author Organization [facility] Address [address] [place] [address] Care Team Providers Care Flying Shear Operator Name Role Phone Michael Porras MD Primary Care Provider Encounter Details Date Type Department Care Team (Late Contact Info) Description 04/07/2020 Chart Note [facility] Radiation Therapy [address] [place] [address] [place] [address] [place] [address] Social History Tobacco Use Types Packs/Day Years Used Date Smoking Tobacco: Never Smokeless Tobacco: Never Alcohol Use Standard Drinks/Week Comments Never 0 (1 standard drink = 0.6 oz pur e alcohol) Comments No Sex and Gender Information Value Date Recorded Sex Assigned at Not on file 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 No / Unsure 03/26/2020 10:06 AM CDT documented as of this encounter Plan of Treatment Upcoming Encounters Date Type Department Care Team (Late Contact Info) Description 01/16/2025 11:00 AM CDT Office Visit [facility] Oncology and Hematology - [place] [facility] [place] [address] Lio Garcia MD [address] [facility] [address] [place] [address] documented as of this encounter Visit Diagnoses Not on filedocumented in this encounter Care Teams Flying Shear Operator Relationship Specialty Start Date End Date Michael Porras MD [address] [place] [address] PCP - General Family Practice 10/07/19 documented as of this encounter
--- OUTSIDE RECORDS SUMMARY | 2025-01-09 10:46 | XMS_ITS | Continuity of Care Document ---
Author Organization [facility] Address [address] [place] [address] Phone Care Team Providers Care Home Health Clinician Name Role Phone Cris Torres Unavailable Unavailable Procedures Procedure Date Office/outpatient Visit, Est TF Plastic Sphcyl Mobile To +/-4d .12-2d Vision Svcs Frames Purchases [...] Copied on Encounter Office/outpat ient Visit, Est [facility], [address], [place], [place], [id number], [place] tel:[phone] [facility] No Information 0 Melissa Anderson [address] , [address], [place], [place], [facility], [place]. tel:[phone] [facility], [address], [place], [place], [address], [place] tel:[phone] [facility] No Information 9 [employer] . [address], [address], [place], [place], [address], [place]. tel:[phone] Referring Provider: Cris Ruiz, [address], [place], [facility]. tel:[phone] [facility], [address], [place], [place], [address], [place] tel:[phone] [facility] No Information 9 Melissa Lynch. [address] , [address], [place], [facility], [place]. tel:[phone] [facility], [address], [place], [place], [address], [place] tel:[phone] [facility] No Information 9 Melissa Lynch. [address] , [address], [place], [facility], [place]. tel:[phone] [facility], [address], [place], [place], [address], [place] tel:[phone] [facility] No Information 9 Vila OD Avi. [address] , [address], [place], [facility], [place]. tel:[phone] [facility], [address], [place], [place], [address], [place] tel:[phone] [facility] No Information 9 Melissa Lynch. [address] , [address], [place], [facility], [place]. tel:[phone] [facility], [address] [place] [address] [address], [place], [place], [address], tel:[phone] [facility] No Information Isrrael-0 7-200 9 Melissa Anderson [address] [facility] , [address], [place], [facility], . tel:[phone] Referring Provider: Cris Ruiz [address] [facility] [address], [place], [facility]. tel:[phone] [facility], [address] [place] [address] [address], [place], [place], [address], tel:[phone] [facility] No Information Mar-0 1-200 8 Melissa Lynch. [address] [facility] , [address], [place], [facility], . tel:[phone] [facility], [address] [place] [address] [address], [place], [place], [address], tel:[phone] [facility] No Information January-0 8-200 7 Melissa Lynch. [address] [facility] [place] , [address], [place], [facility], . tel:[phone] Family History Family Member Type Diagnosis Age At Onset No Information Payers Payer name Insurance type Covered democrat ID Miranda venegas(s) [place] [id number] Social History Type Description Quantity Date Captured [...]
--- OUTSIDE RECORDS SUMMARY | 2025-01-09 10:46 | XMS_ITS | Encounter Summary ---
Author Organization 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, estrogen receptor positive (CMS/HCC) (Primary Dx) Social History Tobacco Use Types Packs/Day Years Used Date Smoking Tobacco: Never Smokeless Tobacco: Never Alcohol Use Standard Drinks/Week Comments Never 0 (1 standard drink = 0.6 oz pur e alcohol) Comments No Sex and Gender Information Value Date Recorded Sex Assigned at Not on file 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 Gender Identity Not on file Sexual Orientation Not on file documented as of this encounter Plan of Treatment Upcoming Encounters Date Type Department Care Team (Late Contact Info) Description 01/16/2025 11:00 AM CDT Office Visit [facility] Oncology and Hematology - [place] [address] [place] [address] Lio Garcia MD [address] [facility] [address] [place] [address] Scheduled Orders Name Type Priority Associated Diagnoses Orde r Schedule CANCER ANTIGEN 15-3 Lab Routine 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
--- OUTSIDE RECORDS SUMMARY | 2025-01-09 10:47 | XMS_ITS | Clinical Summary ---
Author Organization [facility] Address [address] [place] [address] Care Team Providers Care Screen Stretcher Name Role Phone Michael Porras MD Primary Care Provider [phone] Allergies Active Allergy Reactions Criticality Noted Date Comments Ciprofloxacin Nausea and Vomiting High 10/24/2019 Codeine Nausea and Vomiting High 10/24/2019 Duloxetine Seizure High 12/16/2020 Involuntary convulsions Venlafaxine Seizure High 12/16/2020 Involuntary convulsions Medications Telmisartan-Hydr ochlorothiazid 80-12.5 mg Tablet TK 1/2 T PO D 0 Active metoprolol succinate (TOPROL XL) 50 mg Extended Release 24 hour tablet TK 1 T PO BID 0 Active LORazepam (ATIVAN) 1 mg tablet TK 1 T PO BID PRA 9 Active HUMALOG KWIKPEN INSULIN 200 unit/mL (3 mL) pen syringe INJ 20 UNI SC BEFORE BREAKFAST D UTD 0 Active TRUE METRIX GLUCOSE TEST STRIP Strip USE TO TEST BLOOD SUGAR BID 9 Active atorvastatin (LIPITOR) 20 mg tablet TK 1 T PO D 0 Active tamoxifen (NOLVADEX) 20 mg tablet TAKE 1 TABLET(20 MG) BY MOUTH DAILY 90 Tablet 2 4 Active meloxicam (MOBIC) 7.5 mg tablet Take 7.5 mg by mouth daily. 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 30 Tablet 2 4 Active gabapentin (NEURONTIN) 100 mg capsule TAKE 2 CAPSULES BY MOUTH TWICE DAILY NEEDED FOR NERVE PAIN 4 Active glipiZIDE (GLUCOTROL) 5 mg tablet Take 1 Tablet by mouth 2 times daily. 4 Active Lantus Solostar U-100 Insulin 100 unit/mL (3 mL) solution for injection ADMINISTER 30 UNITS UNDER THE SKIN DAILY 4 Active Xarelto 20 mg Tablet Take 1 Tablet (20 mg) by mouth daily. 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, estrogen receptor positive (CMS/HCC) (Primary Dx) 12/17/2024 External Device Data STL ABSTRACTION Provider, Abstract 12/17/2024 External Device Data STL ABSTRACTION Provider, Abstract 12/06/2024 External Device Data STL ABSTRACTION Provider, Abstract 12/05/2024 External Device Data STL ABSTRACTION Provider, Abstract 11/19/2024 External Device Data STL ABSTRACTION Provider, Abstract 10/28/2024 External Device Data STL ABSTRACTION Provider, Abstract 10/22/2024 External Device Data STL ABSTRACTION Provider, Abstract from Last 3 Months Family History Medical History Relation Name Comments Cancer Brother Heart Disease Brother Heart Disease Father Heart Disease Mother Heart Disease Sister 1 Heart Disease Sister 2 Relation Name Status Comments Brother Father Mother Sister 1 Alive Sister 2 Alive Social History Tobacco Use Types Packs/Day Years Used Date Smoking Tobacco: Never Smokeless Tobacco: Never Tobacco Cessation:Counseling Given: Not Answered Alcohol Use Standard Drinks/Week Comments Never 0 (1 standard drink = 0.6 oz pur e alcohol) Comments No Sex and Gender Information Value Date Recorded Sex Assigned at Not on file Legal Sex Female 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 Gender Identity Not on file Sexual Orientation Not on file Last Filed Vital Signs Vital Sign Reading Time Taken Comments Blood Pressure 115/71 09/05/2024 11:54 AM 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 Pulse 83 09/05/2024 11:54 AM 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 Temperature 36.6 C (97.8 F) 09/05/2024 11:54 AM 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 Respiratory Rate 16 09/05/2024 11:54 AM 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 Oxygen Saturation 96% 09/05/2024 11:54 AM 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 Inhaled Oxygen Concentration - - Weight 78.5 kg (173 lb) 09/05/2024 11:54 AM 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 Height 167.6 cm (5' 6 ) 05/22/2022 1:58 PM CDT Body Mass Index 27.92 05/22/2022 1:58 PM CDT Plan of Treatment Upcoming Encounters Date Type Department Care Team (Late st Contact Info) Description 01/16/2025 11:00 AM CDT Office Visit [facility] Oncology and Hematology - [place] [address] [place] [address] [facility] [address] [place] [address] Lio Garcia MD [address] [facility] [address] [place] [address] Health Maintenance Due Date Last Done Comments DTAP/TDAP/TD VACCINES (1 - Tdap) 1959 Traditional Medicare (ACO) A nnual Wellness Visit 1959 PNEUMOCOCCAL VACCINE 50+ YEA RS (1 of 1 - PCV) 02/16/1992 ZOSTER VACCINE (1 of 2) 02/16/1992 RSV VACCINE (60+ or ) (1 - 1-dose 75+ series) 2017 INFLUENZA VACCINE (#1) 2024 COLORECTAL SCREENING Discontinued 03/27/2016, 03/27/20 16 Colorectal Cancer Screening Discontinued OSTEOPOROSIS SCREENING Completed 08/08/2024, 2021 FIT-DNA Q 3 years Discontinued FIT/FOBT Q 1 year Discontinued Flex Sig/CT Colonography Q 5 years Discontinued Procedures Procedure Name Priority Date/Time Associated Diagnosis Comments XR DEXA BONE DENSITY W VERTEBRAL FX Routine 08/08/2024 2:40 PM 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 from Last 3 Months or Most Recently Relevant to Health Maintenance Results * XR DEXA BONE DENSITY W VERTEBRAL FX (08/08/2024 2:40 PM 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) Anatomical Region Laterality Modality Spine Other Lio Garcia MD DIAGNOSTIC IMAGING ORDERABLES F inal Result from Last 3 Months or Most Recently Relevant to Health Maintenance Insurance MEDICARE PART A AND B [facility] Care Teams Screen Stretcher Relationship Specialty Start Date End Date Michael Porras MD [address] [facility] [address] [place] [address] PCP - General Family Practice 10/07/19
[2025-01-09 13:20] LABS: Basophils Absolute Auto 0.1 K/mm3 (0.0-0.1); Basophils Percent Auto 0.7 % (0.2-1.2); Eosinophils Absolute Auto 0.1 K/mm3 (0-0.3); Eosinophils Percent Auto 1.6 % (0-4.4); Hematocrit 46.1 % (37.0-47.0); Hemoglobin 15.8 g/dL (12.0-15.0); Immature Granulocyte Absolute 0.03 K/mm3 (0.00-0.031); Immature Granulocyte Percent A 0.4 % (0-0.5); Lymphocytes Absolute Auto 1.92 K/mm3 (0.9-3.2); Lymphocytes Percent Auto 26.1 % (18.3-44.2); Mean Corpuscular HGB Conc 34.3 g/dl (32-36); Mean Corpuscular Hemoglobin 32.1 pg (26-34); Mean Corpuscular Volume 93.7 fl (80-100); Mean Platelet Volume 9.5 fl (7.4-10.4); Monocytes Absolute Auto 0.6 K/mm3 (0.1-0.6); Monocytes Percent Auto 8.4 % (2.6-8.5); Neutrophils Absolute Auto 4.6 K/mm3 (1.3-6.7); Neutrophils Percent Auto 62.8 % (45.5-73.1); Platelet Count Result 188 k/mm3 (150-375); Red Blood Count 4.92 M/mm3 (4.2-5.4); Red Cell Distribution Width 12.4 % (11.5-14.5); White Blood Count 7.4 K/mm3 (4.5-10.0)
[2025-01-09 16:12] LABS: Alanine Aminotransferase 40 U/L (6-35); Alkaline Phosphatase 78 U/L (38-126); Anion Gap 9 mmol/L (4-12); Aspartate Amino Transferase 28 U/L (14-36); Bilirubin,Total 1.2 mg/dL (0.2-1.3); Blood Urea Nitrogen 18 mg/dL (7-17); Calcium 9.5 mg/dL (8.4-10.2); Carbon Dioxide 32 mmol/L (22-30); Chloride 98 mmol/L (98-107); Estimated Glomerular Filt Rate 44; Glucose 297 mg/dL (65-110); Potassium 4.3 mmol/L (3.4-5.0); Sodium 139 mmol/L (137-145)
[2025-01-11 01:34] LABS: CA 15-3 20 U/mL (<32)
== END 2025-01-09 10:13 | disposition home or self-care (01) ==
PROVIDERS: PCP Family Medicine; Visit Provider Internal Medicine Hematology & Oncology
DX: C50.012 Malignant neoplasm of nipple and areola, left female breast (principal); Z17.0 Estrogen receptor positive status [ER+]
CPT/HCPCS: 36415; 80053; 85025; 86300

== ENCOUNTER 2025-01-09 11:00 | Outpatient (CLI) | payer MEDICARE, SELFPAY ==
--- NOTE | ~2025-01-09 | US_ITS ---
US venous doppler LE LT - 01/09/2025 11:44 CDT History: 84 years old Female with bilateral lower extremity pain and swelling. Comparison: 08/08/2024 Real-time sonographic images of the left lower extremity venous system were obtained. Color Doppler sonography and spectral waveform analysis were performed. No prior studies for comparison. The left sapheno-femoral junctions are patent. 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 The left superficial femoral, popliteal and posterior tibial veins are compressible and without eviden ce of echogenic thrombus. 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 No otherwise acute DVT. Reviewed, dictated and finalized at location A. 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 No otherwise acut e DVT.
--- OUTSIDE RECORDS SUMMARY | 2025-01-09 11:31 | XMS_ITS | Encounter Summary ---
Author Organization [facility] Address [address] [place] [address] Care Team Providers Care Store Stock Associate Name Role Phone Michael Porras MD Primary Care Provider Encounter Details Date Type Department Care Team (Late Contact Info) Description 04/07/2020 Chart Note [facility] Radiation Therapy [address] [place] [address] [place] [address] [place] [address] Social History Tobacco Use Types Packs/Day Years Used Date Smoking Tobacco: Never Smokeless Tobacco: Never Alcohol Use Standard Drinks/Week Comments Never 0 (1 standard drink = 0.6 oz pur e alcohol) Comments No Sex and Gender Information Value Date Recorded Sex Assigned at Not on file Legal Sex Female 10:14 AM ADVANCED QUALITY 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 Gender Identity Not on file Sexual [...] Description 01/16/2025 11:00 AM CDT Office Visit [facility] Oncology and Hematology - [place] [facility] [place] [address] Lio Garcia MD [address] [facility] [address] [place] [address] documented as of this encounter Visit Diagnoses Not on filedocumented in this encounter Care Teams Store Stock Associate Relationship Specialty Start Date End Date Michael Porras MD [address] [place] [address] PCP - General Family Practice 10/07/19 documented as of this encounter
--- OUTSIDE RECORDS SUMMARY | 2025-01-09 11:32 | XMS_ITS | Encounter Summary ---
Author Organization [facility] Address [address] [place] [address] Care Team Providers Care Technical Support Manager Name Role Phone Michael Porras MD Primary Care Provider Encounter Details Date Type Department Care Team (Late Contact Info) Description 01/09/2025 Orders Only [facility] ([facility]3] Oncology and Hematology [place] [address] [place] [address] Lio Garcia MD [address] [place] [address] Malignant neoplasm of nipple of [...] on file Legal Sex Female 10:14 AM CLINIC MGR Gender Identity Not on file Sexual Orientation Not on file documented as of this encounter Plan of Treatment Upcoming Encounters Date Type Department Care Team (Late Contact Info) Description 01/16/2025 11:00 AM CDT Office Visit [facility] ([facility]3] Oncology and Hematology - [place] [address] [place] [address] Lio Garcia MD [address] [place] [id number] Scheduled Orders Name Type Priority Associated Diagnoses Orde r Schedule CANCER ANTIGEN 15-3 Lab Routine 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
--- OUTSIDE RECORDS SUMMARY | 2025-01-09 11:32 | XMS_ITS | Continuity of Care Document ---
Author Organization [facility] Address [address] [place] [address] Phone Care Team Providers Care Drawing Box Tender Name Role Phone Cris Torres Unavailable Unavailable Procedures Procedure Date Office/outpatient Visit, Est TF Plastic Sphcyl [place] To +/-4d .12-2d Vision Svcs Frames Purchases [...] Copied on Encounter Office/outpat ient Visit, Est [facility], [address], [place], [place], [id number], [place] tel:[phone] [facility] No Information 0 Melissa Anderson [address] , [address], [place], [place], [facility], [place]. tel:[phone] [facility], [address], [place], [place], [id number], [place] tel:[phone] [facility] No Information 9 [employer] . [address] [facility], [address], [place], [place], [id number], [place]. tel:[phone] Referring Provider: Cris Ruiz, [address], [place], [place], [facility]. tel:[phone] [facility], [address], [place], [place], [id number], [place] tel:[phone] [facility] No Information 9 Melissa Lynch. [address] , [address], [place], [place], [facility], [place]. tel:[phone] [facility], [address], [place], [place], [id number], [place] tel:[phone] [facility] No Information 9 Melissa Lynch. [address] , [address], [place], [place], [facility], [place]. tel:[phone] [facility], [address], [place], [place], [id number], [place] tel:[phone] [facility] No Information 9 Vila OD Avi. [address] , [address], [place], [place], [facility], [place]. tel:[phone] [facility], [address], [place], [place], [id number], [place] tel:[phone] [facility] No Information 9 Melissa Lynch. [address] , [address], [place], [place], [facility], [place]. tel:[phone] [facility], [address] [place] [address] [address], [place], [place], [id number], tel:[phone] [facility] No Information Isrrael-0 7-200 9 Melissa Anderson [address] [facility] [address] , [address], [place], [place], [facility], . tel:[phone] Referring Provider: Cris Ruiz [address] [facility] [address], [place], [place], [facility]. tel:[phone] [facility], [address] [place] [address] [address], [place], [place], [id number], tel:[phone] [facility] No Information Mar-0 1-200 8 Melissa Lynch. [address] [facility] , [address], [place], [place], [facility], . tel:[phone] [facility], [address] [place] [address] [address], [place], [place], [id number], tel:[phone] [facility] No Information January-0 8-200 7 Melissa Lynch. [address] [place] , [address], [place], [place], [facility], . tel:[phone] Family History Family Member Type Diagnosis Age At Onset No Information Payers Payer name Insurance type Covered green party ID Miranda venegas(s) [place] [id number] Social History Type Description Quantity Date Captured [...]
--- OUTSIDE RECORDS SUMMARY | 2025-01-09 11:32 | XMS_ITS | Clinical Summary ---
[facility] Address [address] [place] [address] Care Team Providers Care Shoe Dyer Name Role Phone Michael Porras MD Primary Care Provider Allergies Active Allergy Reactions Criticality Noted Date [...] Department Care Team Description 01/09/2025 Orders Only [facility] Oncology and Hematology [facility] [address] [place] [address] Lio Garcia MD Malignant neoplasm of [...] on file Legal Sex Female 10:14 AM DIRECTOR OF PRODUCT MANAGEMENT Gender Identity Not on file Sexual Orientation Not on file Last Filed Vital Signs Vital Sign Reading Time Taken Comments Blood Pressure 115/71 09/05/2024 11:54 AM DIRECTOR OF PRODUCT MANAGEMENT Pulse 83 09/05/2024 11:54 AM DIRECTOR OF PRODUCT MANAGEMENT Temperature 36.6 C (97.8 F) 09/05/2024 11:54 AM DIRECTOR OF PRODUCT MANAGEMENT Respiratory Rate 16 09/05/2024 11:54 AM DIRECTOR OF PRODUCT MANAGEMENT Oxygen Saturation 96% 09/05/2024 11:54 AM DIRECTOR OF PRODUCT MANAGEMENT Inhaled Oxygen Concentration - - Weight 78.5 kg (173 lb) 09/05/2024 11:54 AM DIRECTOR OF PRODUCT MANAGEMENT Height 167.6 cm (5' 6 ) 05/22/2022 1:58 PM CDT Body Mass Index 27.92 05/22/2022 1:58 PM CDT Plan of Treatment Upcoming Encounters Date Type Department Care Team (Late st Contact Info) Description 01/16/2025 11:00 AM CDT Office Visit [facility] Oncology and Hematology - [place] [address] [place] [address] [facility] [address] [place] [address] Lio Garcia MD [address] [facility] [address] [place] [address] Health Maintenance Due Date Last [...] W VERTEBRAL FX Routine 08/08/2024 2:40 PM DIRECTOR OF PRODUCT MANAGEMENT from Last 3 Months or Most Recently Relevant to Health Maintenance Results * XR DEXA BONE DENSITY W VERTEBRAL FX (08/08/2024 2:40 PM DIRECTOR OF PRODUCT MANAGEMENT) Anatomical Region Laterality Modality Spine Other Lio Garcia MD DIAGNOSTIC IMAGING ORDERABLES F inal Result from Last 3 Months or Most Recently Relevant to Health Maintenance Insurance MEDICARE PART A AND B [facility] Care Teams Shoe Dyer Relationship Specialty Start Date End Date Michael Porras MD [address] [facility] [address] [place] [address] PCP - General Family Practice 10/07/19
== END 2025-01-09 11:01 | disposition home or self-care (01) ==
LOC: ANHIMG 11:01
PROVIDERS: PCP Family Medicine; Visit Provider Internal Medicine Hematology & Oncology
DX: I82.512 Chronic embolism and thrombosis of left femoral vein (principal)
CPT/HCPCS: 36415; 80053; 85025; 86300; 93971

== ENCOUNTER 2025-04-10 07:54 | Outpatient (CLI) | payer MEDICARE, SELFPAY ==
--- OUTSIDE RECORDS SUMMARY | 2025-04-10 07:58 | XMS_ITS | Clinical Summary ---
Author Organization [facility] Address [address] [place] [address] Care Team Providers Care Recreational Assistant Name Role Phone Michael Porras MD Primary Care Provider [phone] Allergies Active Allergy Reactions Criticality Noted Date [...] Encounters Date Type Department Care Team Description 03/24/2025 External Device Data STL ABSTRACTION Provider, Abstract 03/03/2025 External Device Data STL ABSTRACTION Provider, Abstract 02/24/2025 External Device Data STL ABSTRACTION Provider, Abstract 02/24/2025 External Device Data STL ABSTRACTION Provider, Abstract 02/18/2025 External Device Data STL ABSTRACTION Provider, Abstract 02/17/2025 External Device Data STL ABSTRACTION Provider, Abstract 01/16/2025 11:00 AM CDT Office Visit [facility] Oncology and Hematology [facility] [address] [place] [address] Lio Garcia MD 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, estrogen receptor positive (CMS/HCC) (Primary Dx) 01/12/2025 Orders Only [facility] Oncology and Hematology [facility] [address] [place] [address] Lio Garcia MD 01/09/2025 Orders Only [facility] Oncology and Hematology [facility] [address] [place] [address] Lio Garcia MD 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, estrogen receptor positive (CMS/HCC) (Primary Dx) from Last 3 Months Family History Medical [...] on file Legal Sex Female 10:14 AM ROUGH RICE TENDER Gender Identity Not on file Sexual Orientation Not on file Last Filed Vital Signs Vital Sign Reading Time Taken Comments Blood Pressure 122/71 01/16/2025 10:41 AM CDT Pulse 81 01/16/2025 10:41 AM CDT Temperature 36.1 C (97 F) 01/16/2025 10:41 AM CDT Respiratory Rate 15 01/16/2025 10:41 AM CDT Oxygen Saturation 91% 01/16/2025 10:41 AM CDT Inhaled Oxygen Concentration - - Weight 77.2 kg (170 lb 3.2 oz) 01/16/2025 10:41 AM CDT Height 167.6 cm (5' 6) 05/22/2022 1:58 PM CDT Body Mass Index 27.47 05/22/2022 1:58 PM CDT Plan of Treatment Upcoming Encounters Date Type Department Care Team (Late st Contact Info) Description 07/24/2025 12:45 PM CDT Office Visit [facility] Oncology and Hematology - [place] [address] [place] [address] Lio Garcia MD [address] [facility] [address] [place] [address] Health Maintenance Due Date Last Done Comments DTAP/TDAP/TD VACCINES (1 - Tdap) 1959 PNEUMOCOCCAL VACCINE 50+ YEA RS (1 of 1 - PCV) 02/16/1992 ZOSTER VACCINE (1 of 2) 02/16/1992 RSV VACCINE (60+ or ) (1 - 1-dose 75+ series) 2017 INFLUENZA VACCINE (#1) 2025 OSTEOPOROSIS SCREENING 08/08/2029 4, 08/01/2024, 10/03/2021 COLORECTAL SCREENING Discontinued 03/27/2016, 03/27/20 16 Colorectal Cancer Screening Discontinued FIT-DNA Q 3 years Discontinued FIT/FOBT Q 1 year Discontinued Flex Sig/CT Colonography Q 5 years Discontinued Procedures Procedure Name Priority Date/Time Associated Diagnosis Comments CANCER ANTIGEN 15-3 Routine 01/09/2025 3 :31 PM CDT COMPREHENSIVE METABOLIC PANEL Routine 01/09/2025 12:35 PM CDT CBC WITH AUTODIFFERENTIAL Routine 2024 12:29 PM CDT US VENOUS DOPPLER LEG LEFT Routine 01/09 9:09 AM CDT XR DEXA BONE DENSITY W VERTEBRAL FX Routine 08/08/2024 2:40 PM ROUGH RICE TENDER from Last 3 Months or Most Recently Relevant to Health Maintenance Results * CANCER ANTIGEN 15-3 (01/09/2025 3:31 PM CDT) Blood us Lio Garcia MD CHEMISTRY ORDERABLES Final Resu lt * COMPREHENSIVE METABOLIC PANEL (01/09/2025 12:35 PM CDT) Blood us Lio Garcia MD CHEMISTRY ORDERABLES Final Resu lt * CBC WITH AUTODIFFERENTIAL (01/09/2025 12:29 PM CDT) Blood us Lio Garcia MD HEMATOLOGY ORDERABLES Final Res ult * US VENOUS DOPPLER LEG LEFT (01/09/2025 9:09 AM CDT) Anatomical Region Laterality Modality Lower Extremity Ultrasound us Lio Garcia MD US ORDERABLES Final Result * XR DEXA BONE DENSITY W VERTEBRAL FX (08/08/2024 2:40 PM ROUGH RICE TENDER) Anatomical Region Laterality Modality Spine Other us Lio Garcia MD DIAGNOSTIC IMAGING ORDERABLES F inal Result from Last 3 Months or Most Recently Relevant to Health Maintenance Insurance MEDICARE PART A AND B [facility] Care Teams Recreational Assistant Relationship Specialty Start Date End Date Michael Porras MD [address] [address] PCP - General Family Practice 10/07/19
--- OUTSIDE RECORDS SUMMARY | 2025-04-10 07:58 | XMS_ITS | Data Portability ---
Author Organization [place] - [facility] [employer], Main Office Address [address] [place] [address] Care Team Providers Care Corrugator Operator Name Role Phone HITESH PALACIOS Primary Care Provider HITESH PALACIOS Referring Provider [phone] Assessment Encounter Date Assessment Date Assessment LastModified by Organization Details LastModified Time 12/09/2024 12/09/2024 The patient has advanced degenerative [...] This note is dictated and transcribed by [employer]. Se[employer] Prospecting Observer Helper variances may occur. Despite proofreading, typographical errors may occur. Occasional wrong-word or 'mazyu-z-tdae' substitutions may have occurred due to the inherent limitations of voice recording. Read the chart carefully and recognize, using context, where substitutions have occurred. Not available 12/11/2024 16:03:23 03/12/2025 03/12/2025 This note is dictated and transcribed by [employer]. [employer] Helper variances may occur. Despite proofreading, typographical errors may occur. Occasional wrong-word or 'qfmfi-v-[id number]' substitutions may have occurred due to the inherent limitations of voice recording. Read the chart carefully and recognize, using context, where substitutions have occurred. Not available 03/12/2025 15:24:14 03/20/2025 03/20/2025 The patient has moderately severe primary osteoarthritis both knees she also has advanced lumbar degenerative changes in bilateral sacroiliac pain. She did well with shots last time she would like to proceed again therefore under sterile conditions I injected the patient's bilateral knee joints and the patient's bilateral sacroiliac bursa in the office today with 4 cc of 0.5% bupivacaine and 20 mg of Kenalog each for a total of 4 injections. The patient tolerated all 4 injections well. We talked about possibly some medication however she is on Xarelto she can not take nonsteroidal anti-inflammatory medication. She also has diabetes she uses insulin she states sometimes the shots do raise her blood sugar somewhat so we are going to avoid oral prednisone as well to make sure we do not affect her blood sugar too much. She and her daughter voiced understanding agrees with the above plan I will see her back in 3 months if necessary they will call for any further problems difficulties or questions. Not available 03/20/2025 14:15:46 Plan of Treatment Reminders Order Date Submit Date Provider Last Modified By Organization Details Last Modified Time Details Appointments Establish ed Patient 15 2024 02:00P Arlyn Neville DPM Not available Not available Not available Any 5 2024 01:15P LILLIE Fuentes Not available Not available Not available Lab None recorded. Referral None recorded. Procedures injection /aspirati on joint/bur sa (PROC) 2024 025 [email or web address] In-Office Order, Internal Use Only DO Not Attach Compendium DO Not Attach Compendium, Do Not Delete/merge, [id number] 03/20/2025 13:59:29 injection /aspirati on joint/bur sa (PROC) 2024 025 [email or web address] In-Office Order, Internal Use Only DO Not Attach Compendium DO Not Attach Compendium, Do Not Delete/merge, [id number] 03/20/2025 13:59:28 injection /aspirati on joint/bur sa (PROC) 2024 025 [email or web address] In-Office Order, Internal Use Only DO Not Attach Compendium DO Not Attach Compendium, Do Not Delete/merge, [id number] 12/09/2024 14:16:17 injection /aspirati on joint/bur sa (PROC) 2024 025 [email or web address] In-Office Order, Internal Use Only DO Not Attach Compendium DO Not Attach Compendium, Do Not Delete/merge, [id number] 12/09/2024 14:21:00 injection /aspirati on joint/bur sa (PROC) 2024 025 [email or web address] In-Office Order, Internal Use Only DO Not Attach Compendium DO Not Attach Compendium, Do Not Delete/merge, [id number] 12/09/2024 15:05:51 Surgeries None recorded. Imaging None recorded. Medication Orders bupivacai ne HCl 0.5 % (5 mg/mL) injection solution 2024 025 [email or web address] [facility]42, [address] [place], [place], [id number], 03/20/2025 15:28:07 Kenalog 10 mg/mL suspensio n for injection 2024 025 [email or web address] [facility]67374, [address], [place], [id number], 03/20/2025 15:28:07 bupivacai ne HCl 0.5 % (5 mg/mL) injection solution 2024 025 [email or web address] [facility] #16324, [address], [place], [id number], 03/20/2025 15:28:07 Kenalog 10 mg/mL suspensio n for injection 2024 025 [email or web address] [facility] #36813, [address], [place], [place], [id number], 03/20/2025 15:28:07 bupivacai ne HCl 0.5 % (5 mg/mL) injection solution 2024 025 [email or web address] [facility] #64351, [address], [place], [place], [id number], 12/09/2024 15:05:51 Kenalog 10 mg/mL suspensio n for injection 2024 025 [email or web address] [facility] #95943, [address], [place], [place], [id number], 12/09/2024 15:05:51 bupivacai ne HCl 0.5 % (5 mg/mL) injection solution 2024 025 [email or web address] [facility] #38966, [address], [place], [place], [id number], 12/09/2024 15:05:51 Kenalog 10 mg/mL suspensio n for injection 2024 025 [email or web address] [facility] #32337, [address], [place], [place], [id number], 12/09/2024 15:05:51 bupivacai ne HCl 0.5 % (5 mg/mL) injection solution 2024 025 [email or web address] [facility] #55703, [address], [place], [place], [id number], 12/09/2024 15:05:51 Kenalog 10 mg/mL suspensio n for injection 2024 025 [email or web address] [facility] #52797, [address], [place], [place], [id number], 12/09/2024 15:05:51 Patient TargetsNo targets recorded. Patient InstructionsNo instructions recorded. Reason for Referral None Reported. Results Created Date Observation Date Name Description Value Unit Range Abnormal Flag Note LastModifiedBy Organization Detail LastModifiedTime 09/09/20 24 XR, knee No observ ation record ed. [email or web address] [facility] [address], [address], 09/09/2024 15:44:21 09/09/20 24 XR, lumba r spine No observ ation record ed. [email or web address] [facility] [address], [place], [address], 09/09/2024 15:45:51 Result Notes None recorded. Problems Name Problem SNOMED Code Status Onset Date Resolution Date Notes Provider Name and Address Organization Details Recorded Time Bilateral osteoarthr itis of knees 7614507246265 07 Active 2022 Not Available [facility] 3 01:24:46 Pain in right sacroiliac joint 0488412436112 9107 Active 2021 Not Available [facility] 3 01:24:46 Osteoarthr itis of right knee joint 4457333699105 00 Active 2021 Not Available [facility] 3 01:24:46 Lumbar spondylosi s 763296768 Active 2022 LILLIE Reyes [address] [place] [address], [address] , [facility] 3 14:42:12 Arthritis 7574625 Active 2023 Rica preston [place] [facility] 4 15:10:54 Breast problem 110044048 Active 2023 Rica preston [place] [facility] 4 15:11:05 Malignant tumor of breast 028223243 Active 2023 Rica preston [place] [facility] 4 15:11:17 Diabetes mellitus 59178213 Active 2023 Rica preston, [facility] 4 15:11:25 Hyperchole sterolemia 35566279 Active 2023 Rica Rendon null, [place] [facility] 4 15:11:38 Hypertensi ve disorder 74779638 Active 2023 Rica Rendon null, [facility] 4 15:11:49 Diabetic peripheral neuropathy 591138554 Active 2023 Enrique Neville DPM [address], [place], [address] , [facility] 4 15:26:34 Dystrophia unguium 11875245 Active 2023 Enrique Neville DPM [address], [address], [place], [address] , [facility] 4 15:26:38 Swelling of bilateral lower limbs 322944945 Active 2023 Enrique Neville DPM [address], [place], [address] , [facility] 4 15:27:54 Deep venous thrombosis of lower extremity 880558032 Active 2023 Enrique Neville DPM [address], [place], [address] , [facility] 4 14:39:49 Pain in left sacroiliac joint 4633693924235 9102 Active 2023 Tanika Goodrich null, [facility] 4 15:05:57 Diabetic on insulin 529082617 Active 2024 Enrique Neville DPM [address], [place], [address] , [facility] 5 16:03:20 Pain of bilateral knee regions 0563954273219 02 Active 2024 Keyana Franks [employer]Clay preston, [facility] 5 13:55:00 Bilateral sacroiliac joint pain 6991411881127 9104 Active 2024 Keyana Franks [employer] null, [place] [facility] 5 13:55:49 Pain of knee region 9681636590 Active 2024 LILLIE Reyes [address], [place], [address] , [facility] 5 14:15:51 Notes:RADIATION/CHEMOTHERAPY Problem Notes None recorded. Procedures Surgical History Date Name Laterality Status Provider Name and Address Organization Details Recorded Time 03/12/20 25 Nail Debridement completed Enrique Neville DPM [address], [address], [place], [address], [facility] 03/12/2025 15:24:09 12/12/19 25 Nail Debridement completed Enrique Neville DPM [address], [address], [place], [address], [facility] 12/16/2024 10:01:12 09/11/20 24 Nail Debridement completed Enrique Neville DPM [address], [address], [place], [address], [facility] 09/15/2024 08:44:26 05/08/20 24 Nail Debridement completed Enrique Neville DPM [address], [place], [address], [facility] 05/08/2024 14:58:48 02/07/20 24 Nail Debridement completed Enrique Neville DPM [address], [place], [address], [facility] 02/07/2024 14:39:30 10/25/19 24 Nail Debridement completed Enrique Neville DPM [address], [place], [address], [facility] 10/25/2023 15:26:28 05/31/20 23 Ortho - Cortisone Injection completed Chris Velez MD [address], [place], [address], [facility] 05/31/2023 14:30:18 01/26/20 23 Ortho - Cortisone Injection completed Chris Velez MD [address], [place], [address], [facility] 01/25/2023 13:39:35 Masectomy completed Not Available [facility] 0 11/30/2022 01:23:33 Imaging Results None recorded. Procedure Notes None recorded. Medical Equipment None Reported. Allergies Allergen ID Allergen Name Allergen Category Reaction Reaction Severity Criticality Documentation Date Start Date Code Code System Note Provider Name and Address Organization Details Recorded Time 04132 codeine medicatio n nausea Not available Not available 11/30/2022 2670 RxNorm Not Available [facility] 01:26:11 43682 Cipro medicatio n Not available Not available Not available 09/04/202357022 3 RxNorm MAYDA Loja, [facility] 13:54:57 Medications Name Sig Start Date Stop [...] solution Take 40 mg by injection route. 2024 active Not Available [...] Kenalog 10 mg/mL suspension for injection Take 40 mg by injection route. 2024 active [facility]: 0003- 0494- 20 Not Available Not Available Not Available Flagyl 500 mg tablet Take 1 tablet every 8 hours by oral route. 10/25 completed Not Available Not Available Not Available telmisartan 80 mg-hydrochl orothiazide 12.5 mg tablet TAKE ONE TABLET BY MOUTH DAILY active Not Available [...] 40 mg by injection route. 09/04 completed [facility] [address]71 -064- 01 Not Available Not Available Not Available Xarelto 15 mg tablet 02/06 completed Not Available Not Available Not Available Xarelto 20 mg tablet TAKE 1 TABLET BY MOUTH ONCE DAILY WITH THE EVENING MEAL. active Not Available Not Available No t Available True Metrix Glucose Test Strip USE TO CHECK BLOOD SUGAR 3 TIMES DAILY active Not Available Not Available [...] Updated DateTime 12/09/2024 167.64 cm 26.6 kg/m2 91174.74 g SEKOU Mcintosh [facility] [employer] 12/09/2024 14:13:29 Date Recorded Body height Body mass index (BMI) Body weight Heart rate Respiratory rate Oxygen saturation Oxygen saturation in Arterial blood by Pulse oximetry Systolic And Diastolic Provider Name and Address Organization Details Last Updated DateTime 167.64 cm 26.6 kg/m2 18523.7 4 g 80 /min 14 /min 98 % 98 % 134/76 mm[Hg] Maureen Fernandez [place] [facility] [employer] 15:22:40 Date Recorded Body height Body mass index (BMI) Body weight Heart rate Respiratory rate Oxygen saturation Oxygen saturation in Arterial blood by Pulse oximetry Systolic And Diastolic Provider Name and Address Organization Details Last Updated DateTime 167.64 cm 26.6 kg/m2 21878.7 4 g 95 /min 14 /min 98 % 98 % 123/73 mm[Hg] Maureen Jim [facility] 15:01:28 Date Recorded Body height Body mass index (BMI) Body weight Provider Name and Address Organization Details Last Updated DateTime 03/20/2025 167.64 cm 26.6 kg/m2 83977.74 g Keyana Franks PR[employer] [facility] 03/20/2025 13:53:51 Date Recorded Body height Body mass index (BMI) Body weight Heart rate Respiratory rate Oxygen saturation Oxygen saturation in Arterial blood by Pulse oximetry Systolic And Diastolic Provider Name and Address Organization Details Last Updated DateTime 167.64 cm 26.6 kg/m2 47914.7 4 g 96 /min 14 /min 97 % 97 % 136/80 mm[Hg] Maureen Fernandez [facility] 15:38:50 Social History None recorded. Functional Status Question Answer Note LastModified by Organizat ion Details LastModified Time What is your level of alcohol consumption? None [id number] Information not available 11/30/2022 Mental Status None recorded. Family History Relationship [...] 15:12:46 Father Hypertensive disorder [email or web address] Not available 12/10/ 2024 14:25:06 Sister Blood coagulation disorder [email or web address] Not available 2023 14:25:39 Notes:cancer-sister Medical History Condition Response ARTHRITIS Y CANCER: SPECIFY Y USE OF BLOOD THINNERS Y BLOOD [...] SNOMED-CT Code Diagnosis ICD10 Code Diagnosis Note [id number] Chris Velez MD [facility] [address] [place] [address] 06/22/2022 00:00:00 06/22/2022 12:14:17 [id number] Chris Velez MD [facility] [address] [place] [address] 07/24/2022 00:00:00 07/24/2022 10:44:[id number] [facility] [address] [place] [address] 10/24/2022 00:00:00 10/24/2022 14:47:12 [id number] [facility] [address] [place] [address] 01/25/2023 13:24:16 01/25/2023 13:58:52 Bilateral osteoarthritis of knees 9019695191 80467 M17.0 Pain in ri ght sacroiliac joint 6092489592 3565715 M53.3 [id number] Chris Velez MD [facility] [address] [place] [address] 05/31/2023 14:22:01 05/31/2023 15:57:10 Bilateral osteoarthritis of knees 4959811219 34560 M17.0 Pain in ri ght sacroiliac joint 8913549332 5674239 M53.3 [id number] LILLIE Reyes [facility] [address] [place] [address] 09/04/2023 13:37:58 09/04/2023 14:37:06 Pain in right sacroiliac joint 9233999261 8343276 M53.3 Bilateral osteoarthritis of knees 8421512665 15399 M17.0 Lumbar spondylosis 99313 0009 M47.388 [id number] Enrique Neville DPM [facility] [address] [place] [address] 10/25/2023 14:59:01 10/31/2023 09:34:54 Diabetic peripheral neuropathy 132719366 E11.40 Continue diabetic control per PCP Follow-up in 3-4 months for diabetic foot care Dystrophia unguium 86968 009 L60.3 Nails debrided 1 through 10 without incident Swelling o f bilateral lower limbs 543819724 M79.89 Recommend bilateral compressio n stockings- over-the-c ounter [id number] Ross Ellis MD [facility] [address] [place] [address] 12/06/2023 14:34:01 12/06/2023 15:03:23 Bilateral osteoarthritis of knees 7094488243 43306 M17.0 Pain in ri ght sacroiliac joint 3599553628 1015112 M53.3 Lumbar spondylosis 63545 0009 M47.849 [id number] Enrique Neville DPM [facility] [address] [place] [address] 02/07/2024 14:22:00 02/07/2024 14:52:47 Diabetes mellitus 91981125 E11.9 continue diabetic control per PCP recommenda tions Diabetic p eripheral neuropathy 563715352 E11.40 Continue diabetic shoe gearcheck feet daily for wounds infectionF ollow-up in 3 months for diabetic foot care Dystrophia unguium 29602 009 L60.3 Nails debrided 1 through 10 without incident Deep venou s thrombosis of lower extremity 199514553 I82.409 continue PCP recommenda tions- on Xarelto [id number] Enrique Neville DPM [facility] [address] [place] [address] 05/08/2024 14:16:44 05/09/2024 09:39:55 Diabetes mellitus 32786173 E11.9 continue diabetic control per PCP recommenda tions Diabetic p eripheral neuropathy 605181211 E11.40 Continue diabetic shoe gearcheck feet daily for wounds infectionF ollow-up in 3 months for diabetic foot care Dystrophia unguium 35344 009 L60.3 Nails debrided 1 through 10 without incident [id number] Ross Ellis MD [facility] [address] [place] [address] 09/09/2024 14:10:27 09/09/2024 15:12:57 Bilateral osteoarthritis of knees 2371702346 17967 M17.0 Pain in ri ght sacroiliac joint 9338557560 6580902 M53.3 Lumbar spondylosis 90721 0009 M47.896 Pain in le ft sacroiliac joint 8607903094 0041072 M53.3 [id number] Enrique Neville DPM [facility] [address] [place] [address] 09/11/2024 15:33:43 09/26/2024 07:56:37 Diabetes mellitus 82394411 E11.9 continue diabetic control per PCP recommenda tions Diabetic p eripheral neuropathy 554229180 E11.40 Continue diabetic shoe gearcheck feet daily for wounds infectionF ollow-up in 3 months for diabetic foot care Dystrophia unguium 12218 009 L60.3 Nails debrided 1 through 10 without incident [id number] Ross Ellis MD [facility] [address] [place] [address] 12/09/2024 14:10:04 12/09/2024 15:49:11 Bilateral osteoarthritis of knees 7712263692 00510 M17.0 Pain in le ft sacroiliac joint 1925771973 9871712 M53.3 Pain in ri ght sacroiliac joint 9230433244 9407045 M53.3 Lumbar spondylosis 72790 0009 M47.635 [id number] Enrique Neville DPM [facility] [address] [place] [address] 12/11/2024 15:14:39 12/16/2024 11:40:06 Diabetes mellitus 88012493 E11.9 continue diabetic control per PCP recommenda tions Dystrophia unguium 30797 009 L60.3 Nails debrided 1 through 10 without incident Diabetic on insulin 1707 63870 Z79.4 [id number] Enrique Neville DPM [facility] [address] [place] [address] 03/12/2025 14:55:23 03/16/2025 11:40:13 Diabetes mellitus 05869251 E11.9 continue diabetic control per PCP recommenda tions Diabetic p eripheral neuropathy 633741683 E11.40 Continue diabetic shoe gearcheck feet daily for wounds infectionF ollow-up in 3 months for diabetic foot care Dystrophia unguium 80688 009 L60.3 Nails debrided 1 through 10 without incident [id number] Ross Ellis MD [facility] [address] [place] [address] 03/20/2025 13:49:51 03/20/2025 14:11:54 Bilateral osteoarthritis of knees 3736022123 46350 M17.0 Lumbar spondylosis 47602 0009 M47.896 Bilateral sacroiliac joint pain 6911448425 8710441 M53.3 Pain of knee region 1003 824774 M25.561 M25.562 G89.29 Health Concerns Section Related Observation LastModified by Organization Detai ls LastModified Time None Recorded Concern Status LastModified by Organization Details LastModified Time None Recorded Advance Directives Directive None Recorded Payers Insurance Date Sequence Insurance Name Policy Number Policy Shirley Covered Member ID Shirley Member ID Guarantor Name 03/09/2025 1 [place] Lori Velázquez [id number] oLri Velázquez 03/31/2025 2 [place] [id number] Lori Velázquez [id number] Lori Velázquez Notes Date Note Type Note Provider Name and Address Organization Details Recorded Time 09/11/2024 text/html . Patient is an 84-year-old [...] Neville DPM [address], [place], [address], [employer] 09/15/2024 08:44:46 12/09/2024 text/html The patient retu [...] repeat those all 4 today. LILLIE Reyes [address], [place], [address], [employer] 12/09/2024 15:42:36 12/11/2024 text/html . Patient is a 84-year-old female diabetic who returns for diabetic foot care. Patient denies any new complaints. Patient has elongated toenails would like to have cut. Patient denies any recent injury of the foot she denies any open wounds. Patient denies any intermittent cramping with walking. Enrique Neville DPM [address], [place], [address], [employer] 12/16/2024 10:01:49 03/12/2025 text/html . Patient is a 85-year-old female diabetic shoe returns for diabetic foot care she states she does have some numbness and tingling she denies any open wounds or injury. Patient denies any cramping or rest pain. Patient states that she would like her nails cut she can not cut them. Patient denies any other complaints. Enrique Neville DPM [address], [facility] [address], [place], [address], [employer] 03/16/2025 09:40:13 03/20/2025 text/html the patient retu rns with bilateral knee pain and bilateral sacroiliac pain. Three months ago we did shots of cortisone in all 4 sites she got excellent relief. Only recently her pain has started to return. She states today the pain is about a 5 on a scale of 1-10 denies any radiculopathy weakness numbness or tingling or bowel or bladder symptoms she has severe lumbar spondylosis particularly at L3-4 which causes complete loss of the disc space and minor spondylolisthesis of L4 anteriorly on L5. She has multiple levels of degenerative changes she complains of bilateral sacroiliac pain as described. She also has moderately severe primary osteoarthritis both knees left slightly worse than right. She has tricompartmental changes and mild valgus deformities of both knees. She denies any trauma or injury no effusion or swelling no erythema heat or other signs of infection. She does have significant crepitation aching pain with more activity. She is not interested in total knee arthroplasty or other surgical intervention or more invasive procedures for her knees or her back she would like to have all 4 sites injected today. She has no new symptoms no new trauma or injury to her back or her knees. LILLIE Reyes [address], [facility] [address], [place], [address], [employer] 03/20/2025 14:16:50 OBGyn Episode No OBEpisode recorded.
--- OUTSIDE RECORDS SUMMARY | 2025-04-10 07:58 | XMS_ITS | Continuity of Care Document ---
Author Organization [facility] Address [address] [place] [address] Phone Care Team Providers Care Grades 1 Through 6 Teacher Name Role Phone Cris Torres Unavailable Unavailable Procedures Procedure Date Office/outpatient Visit, Est TF Plastic Sphcyl [place] To +/-4d .12-2d Vision Svcs Frames Purchases [...] Copied on Encounter Office/outpat ient Visit, Est [facility], [address], [place], [place], [id number], [place] tel:[phone] SEC [facility] No Information 0 Melissa Anderson [address] , [address], [place], [place], [facility], [place]. tel:[phone] [facility], [address], [place], [place], [id number], [place] tel:[phone] [facility] No Information 9 [employer] . [address] [facility], [address], [place], [place], [id number], [place]. tel:[phone] Referring Provider: Cris Ruiz, [address], [place], [place], [facility]. tel:[phone] [facility], [address], [place], [place], [id number], [place] tel:[phone] [facility] No Information 9 Melissa Lynch. [address] , [address], [place], [facility], [place]. tel:[phone] [facility], [address], [place], [place], [id number], [place] tel:[phone] [facility] No Information 9 Melissa Lynch. [address] , [address], [place], [facility], [place]. tel:[phone] [facility], [address], [place], [place], [id number], [place] tel:[phone] [facility] No Information 9 Vila OD Avi. [address] , [address], [place], [facility], [place]. tel:[phone] [facility], [address], [place], [place], [id number], [place] tel:[phone] [facility] No Information 9 Melissa Lynch. [address] , [address], [place], [facility], [place]. tel:[phone] [facility], [address] [place] [address] [address], [place], [place], [id number], tel:[phone] SEC [facility] No Information Isrrael-0 7-200 9 Melissa Anderson [address] , [address], [place], [facility], . tel:[phone] Referring Provider: Cris Ruiz [address], [place], [facility]. tel:[phone] [facility], [address] [place] [address] [address], [place], [place], [id number], tel:[phone] SEC [facility] No Information Mar-0 1-200 8 Melissa Lynch. [address] [facility] , [address], [place], [facility], . tel:[phone] [facility], [address] [place] [address] [address], [place], [place], [id number], tel:[phone] [facility] No Information January-0 8-200 7 Melissa Lynch. [address] [place] , [address], [place], [facility], . tel:[phone] Family History Family Member Type Diagnosis Age At Onset No Information Payers Payer name Insurance type Covered democrat ID Miranda venegas(s) [place] [id number] Social History Type Description Quantity Date Captured [...]
--- OUTSIDE RECORDS SUMMARY | 2025-04-10 07:58 | XMS_ITS | Encounter Summary ---
Author Organization [facility] Address [address] [place] [address] Care Team Providers Care Scheduling Specialist Name Role Phone Michael Porras MD Primary Care Provider Encounter Details Date Type Department Care Team (Late Contact Info) Description 04/07/2020 Chart Note Ross Cristina [facility] Radiation Therapy [address] [place] [address] [place] [address] [place] [address] Social History Tobacco Use Types Packs/Day Years Used Date Smoking Tobacco: Never Smokeless Tobacco: Never Alcohol Use Standard Drinks/Week Comments Never 0 (1 standard drink = 0.6 oz pur e alcohol) Comments No Sex and Gender Information Value Date Recorded Sex Assigned at Not on file 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 No / Unsure 03/26/2020 10:06 AM CDT documented as of this encounter Plan of Treatment Upcoming Encounters Date Type Department Care Team (Late Contact Info) Description 07/24/2025 12:45 PM CDT Office Visit [facility] [place] Oncology and Hematology - Agustin [facility] [place] [address] Lio Garcia MD [address] [facility] [address] [place] [address] documented as of this encounter Visit Diagnoses Not on filedocumented in this encounter Care Teams Scheduling Specialist Relationship Specialty Start Date End Date Michael Porras MD [address] [place] [address] PCP - General Family Practice 10/07/19 documented as of this encounter
[2025-04-10 09:42] LABS: Alanine Aminotransferase 31 U/L (6-35); Albumin Level 3.7 g/dL (3.5-5.1); Alkaline Phosphatase 68 U/L (38-126); Anion Gap 6 mmol/L (4-12); Aspartate Amino Transferase 24 U/L (14-36); Bilirubin,Total 1.6 mg/dL (0.2-1.3); Blood Urea Nitrogen 15 mg/dL (7-17); Calcium 9.1 mg/dL (8.4-10.2); Carbon Dioxide 30 mmol/L (22-30); Chloride 102 mmol/L (98-107); Cholesterol 173 mg/dL (0-200); Estimated Glomerular Filt Rate 54; Glucose 119 mg/dL (65-110); HDL Direct 54 mg/dL; Potassium 3.5 mmol/L (3.4-5.0); Sodium 138 mmol/L (137-145); Total Protein 6.5 g/dL (6.3-8.2); Triglycerides 104 mg/dL (<150)
[2025-04-10 10:00] LABS: Hemoglobin A1C 9.8 % (<5.7)
[2025-04-10 10:13] LABS: Thyroid Stimulating Hormone 4.730 uIU/mL (0.465-4.680)
== END 2025-04-10 07:55 | disposition home or self-care (01) ==
PROVIDERS: PCP Family Medicine; Visit Provider Physician Assistant
DX: Z00.00 Encounter for general adult medical examination without abnormal findings (principal); E11.9 Type 2 diabetes mellitus without complications; Z79.4 Long term (current) use of insulin; I10 Essential (primary) hypertension; E78.5 Hyperlipidemia, unspecified
CPT/HCPCS: 36415; 80053; 80061; 83036; 84443

== ENCOUNTER 2025-07-30 14:51 | Outpatient (CLI) | payer MEDICARE, SELFPAY ==
--- OUTSIDE RECORDS SUMMARY | 2010-02-08 11:15 | XMS_ITS | Continuity of Care Document ---
Author Organization [facility] Address [address] [place] [address] Phone Care Team Providers Care Cryptographic Machine Operator Name Role Phone Cris Torres Unavailable Unavailable Procedures Procedure Date Office/outpatient Visit, Est TF Plastic Sphcyl Stephen To +/-4d .12-2d Vision Svcs Frames Purchases Progressive Lens, Polycarb Frames Deluxe Progressive Lens, Polycarb Post-op Follow-up Visit Post-op Follow-up Visit Post-op Follow-up Visit Remove Cataract, Insert Lens PreOp Assessment Performed Eye Exam & Treatment Optic Nerve Head Eval IOLMaster Cataract Kit SEC MV Tax - Medical Eye Exam & Treatment Optic Nerve Head Eval Refraction Eye Exam & Treatment Refraction Advance Directives Directive Yes / No Effective Date File Name No Information Encounters Encounter Description Practice Location Reason(s) For Visit Diagnoses Date Provider Providers Copied on Encounter Office/outpat ient Visit, Est [facility], [address], [place], [place], [id number], [place] tel:[phone] [facility] No Information 0 Melissa Anderson [address] , [address], [place], [place], [facility], [place]. tel:[phone] [facility], [address], [place], [place], [id number], [place] tel:[phone] [facility] No Information 9 [employer] . [address], [address], [place], [place], [id number], [place]. tel:[phone] Referring Provider: Cris Ruiz, [address], [place], [place], [facility]. tel:[phone] [facility], [address], [place], [place], [id number], [place] tel:[phone] [facility] No Information 9 Melissa Lynch. [address] , [address], [place], [place], [facility], [place]. tel:[phone] [facility], [address], [place], [place], [id number], [place] tel:[phone] [facility] No Information 9 Melissa Lynch. [address] , [address], [place], [place], [facility], [place]. tel:[phone] [facility], [address], [place], [place], [id number], [place] tel:[phone] [facility] No Information 9 Vila OD Vai. [address] , [address], [place], [facility], [place]. tel:[phone] [facility], [address], [place], [place], [id number], [place] tel:[phone] [facility] No Information 9 Melissa Lynch. [address] , [address], [place], [facility], [place]. tel:[phone] [facility], [address] [place] [address] [address], [place], [place], [id number], tel:[phone] [facility] No Information Isrrael-0 7-200 9 Melissa Anderson [address] [facility] , [address], [place], [place], [facility], . tel:[phone] Referring Provider: Cris Ruiz [address] [facility] [address], [place], [place], [facility]. tel:[phone] [facility], [address] [place] [address] [address], [place], [place], [id number], tel:[phone] [facility] No Information Mar-0 1-200 8 Melissa Lynch. [address] [facility] , [address], [place], [facility], . tel:[phone] [facility], [address] [place] [address] [address], [place], [place], [id number], tel:[phone] [facility] No Information January-0 8-200 7 Melissa Lynch. [address] [facility] [address] , [address], [place], [place], [facility], . tel:[phone] Family History Family Member Type Diagnosis Age At Onset No Information Payers Payer name Insurance type Covered constitution party ID Miranda venegas(s) [place] [id number] Social History Type Description Quantity Date Captured Comments Sex Female Smoking Status No Information Chief Complaint And Reason For Visit No Information Reason For Referral Reason For Referral No Information History Of Present Illness Encounter Date Complaint History Of Prese nt Illness No Information Functional Status Date Functional Assessmen t No Information Instructions Date Instruction Additional Infor mation No Information Assessments Type Assessment Date No Information Patient Care Teams Name Effective Dates (start - stop) Status Members No Information
--- OUTSIDE RECORDS SUMMARY | 2025-07-30 15:16 | XMS_ITS | Encounter Summary ---
Author Organization [facility] Address [address] [place] [address] Care Team Providers Care Plate Cutter Name Role Phone Michael Porras MD Primary Care Provider Encounter Details Date Type Department Care Team (Late Contact Info) Description 04/07/2020 Chart Note Ross Cristina [facility] Radiation Therapy [address] [place] [address] [place] [address] [place] [address] Social History Tobacco Use Types Packs/Day Years Used Date Smoking Tobacco: Never Smokeless Tobacco: Never Alcohol Use Standard Drinks/Week Comments Never 0 (1 standard drink = 0.6 oz pur e alcohol) Comments No Sex and Gender Information Value Date Recorded Sex Assigned at Not on file 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 No / Unsure 03/26/2020 10:06 AM CDT documented as of this encounter Plan of Treatment Upcoming Encounters Date Type Department Care Team (Late Contact Info) Description 01/28/2026 1:15 PM CDT Office Visit [facility] Oncology and Hematology - [place]ust[place] [facility] [address] [place] [phone] Lio Garcia MD [address] [facility] [address] [place] [address] documented as of this encounter Visit Diagnoses Not on filedocumented in this encounter Care Teams Plate Cutter Relationship Specialty Start Date End Date Michael Porras MD [address] [place] [address] PCP - General Family Practice 10/07/19 documented as of this encounter
--- OUTSIDE RECORDS SUMMARY | 2025-07-30 15:16 | XMS_ITS | Clinical Summary ---
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 Encounters Date Type Department Care Team Description 07/24/2025 12:45 PM CDT Office Visit [facility] Oncology and Hematology - [place]ust[place] [address] [place] [address] Lio Garcia MD 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, estrogen receptor positive (CMS/HCC) (Primary Dx); Visit for screening mammogram 07/21/2025 Orders Only [facility] Oncology and Hematology - [place] [address] [place] [address] Lio Garcia MD 07/17/2025 Orders Only [facility] Oncology and Hematology - [place] [address] [place] [phone] Lio Garcia MD 07/14/2025 External Device Data STL ABSTRACTION Provider, Abstract 07/07/2025 External Device Data STL ABSTRACTION Provider, Abstract 06/16/2025 External Device Data STL ABSTRACTION Provider, Abstract 06/04/2025 Refill [facility] Oncology and Hematology [facility] [address] [place] [address] Lio Garcia MD 05/20/2025 External Device Data STL ABSTRACTION Provider, Abstract 05/05/2025 External Device Data STL ABSTRACTION Provider, Abstract [...] file 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 Gender Identity Not on file Sexual Orientation Not on file Last Filed Vital Signs Vital Sign Reading Time Taken Comments Blood Pressure 146/77 07/24/2025 12:38 PM CDT Pulse 80 07/24/2025 12:36 PM CDT Temperature 36.1 C (96.9 F) 07/24/2025 12:36 PM CDT Respiratory Rate 16 07/24/2025 12:36 PM CDT Oxygen Saturation 93% 07/24/2025 12:36 PM CDT Inhaled Oxygen Concentration - - Weight 78.3 kg (172 lb 9.6 oz) 07/24/2025 12:36 PM CDT Height 167.6 cm (5' 6) 05/22/2022 1:58 PM CDT Body Mass Index 27.86 05/22/2022 1:58 PM CDT Plan of Treatment Upcoming Encounters Date Type Department Care Team (Late st Contact Info) Description 01/28/2026 1:15 PM CDT Office Visit [facility] Oncology and Hematology [facility] [address] [place] [phone] Lio Garcia MD [address] [facility] [address] [place] [address] Health Maintenance Due Date Last Done Comments DIABETES ANNUAL FOOT EXAM 02/16/1960 DIABETES MICROALBUMIN ANNUAL SCREEN 02/16/1960 LDL CHOLESTEROL ANNUAL 02/16/1960 DTAP/TDAP/TD VACCINES (1 - Tdap) 1961 PNEUMOCOCCAL VACCINE 50+ YEA RS (1 of 2 - PCV) 1961 ZOSTER VACCINE (1 of 2) 02/16/1992 RSV VACCINE (60+ or ) (1 - 1-dose 75+ series) 2017 INFLUENZA VACCINE (#1) 2025 DIABETES HBA1C Q 6 MONTHS 10/11/20252024, 08/08/2024, 02/09/2023, Additional history exists DIABETES ANNUAL RETINAL EXAM 11/07/202503/2025, 08/08/2023, 04/11/2021, Additional history exists OSTEOPOROSIS SCREENING 08/08/2029 4, 08/01/2024, 10/03/2021 COLORECTAL SCREENING Discontinued 03/27/2016, 03/27/20 16 Colorectal Cancer Screening Discontinued FIT-DNA Q 3 years Discontinued FIT/FOBT Q 1 year Discontinued Flex Sig/CT Colonography Q 5 years Discontinued Procedures Procedure Name Priority Date/Time Associated Diagnosis Comments CHG CA 15 3 Routine 07/17/2025 12:45 PM CDT COMPREHENSIVE METABOLIC PANEL Routine 07/17/2025 11:52 AM CDT XR DEXA BONE DENSITY W VERTEBRAL FX Routine 08/08/2024 2:40 PM CHIEF METEOROLOGIST from Last 3 Months or Most Recently Relevant to Health Maintenance Results * CHG CA 15 3 (07/17/2025 12:45 PM CDT) us Lio Garcia MD CHG - LABORATORY Final Result * COMPREHENSIVE METABOLIC PANEL (07/17/2025 11:52 AM CDT) Blood us Lio Garcia MD CHEMISTRY ORDERABLES Final Resu lt * XR DEXA BONE DENSITY W VERTEBRAL FX (08/08/2024 2:40 PM CHIEF METEOROLOGIST) Anatomical Region Laterality Modality Spine Other Lio Garcia MD DIAGNOSTIC IMAGING ORDERABLES F inal Result from Last 3 Months or Most Recently Relevant to Health Maintenance Insurance MEDICARE PART A AND B BCBS SUPP Care Teams Precision Honer Relationship Specialty Start Date End Date Michael Porras MD [address] [facility] [address] [place] [address] PCP - General Family Practice 10/07/19
[2025-07-30 15:34] LABS: Alanine Aminotransferase 27 U/L (6-35); Albumin Level 4.0 g/dL (3.5-5.1); Alkaline Phosphatase 87 U/L (38-126); Anion Gap 8 mmol/L (4-12); Aspartate Amino Transferase 32 U/L (14-36); Bilirubin,Total 0.9 mg/dL (0.2-1.3); Blood Urea Nitrogen 21 mg/dL (7-17); Calcium 9.4 mg/dL (8.4-10.2); Carbon Dioxide 28 mmol/L (22-30); Chloride 99 mmol/L (98-107); Estimated Glomerular Filt Rate > 60; Glucose 332 mg/dL (65-110); Potassium 4.2 mmol/L (3.4-5.0); Sodium 135 mmol/L (137-145); Total Protein 6.8 g/dL (6.3-8.2)
[2025-07-30 16:13] LABS: Hemoglobin A1C 8.1 % (<5.7)
== END 2025-07-30 14:52 | disposition home or self-care (01) ==
LOC: ANHLAB 14:53
PROVIDERS: PCP Family Medicine; Visit Provider Physician Assistant
DX: E11.9 Type 2 diabetes mellitus without complications (principal); I10 Essential (primary) hypertension; Z79.4 Long term (current) use of insulin
CPT/HCPCS: 36415; 80053; 83036